=== PATIENT | male | born 1980 | race Caucasian/White ===

== ENCOUNTER 2018-10-18 04:35 | Inpatient (IN) | payer BC, OTHER ==
[~2018-10-18] VITALS: Ht 177.8 cm; Wt 97.8 kg
[2018-10-18] VITALS (9 sets, daily range): BP systolic 114–147; BP diastolic 78–101
--- OUTSIDE RECORDS SUMMARY | 2018-10-18 04:45 | XMS REPORT ---
Author Author Swapna Isaacs Organization [facility] Address [address] [place], [place] [id number] Care Team Providers Care Yard Caller Name Role Phone Swapna Isaacs PCP Swapna Isaacs PreferredProvider Allergies and Adverse Reactions Name Reaction Notes NO KNOWN DRUG ALLERGIES Plan of Treatment Planned Activity Comments Planned Date Planned Time Plan/Goal .Lipid Panel 06/21/2017 12:00 AM .Lipid Panel 06/27/2018 12:00 AM US [employer] (SINGLE ORGAN) 07/09/2018 12:00 AM Medications Active Name Start Date Estimated Completion Date SIG Comments mupirocin 2 % topical ointment 08/26/2013 apply a small amount to the affected area by topical route 3 times per day Humira subcutaneous lisinopril 10 mg oral tablet 06/27/2018 TAKE 1 TABLET BY MOUTH EVERY DAY Name Start Date Expiration Date SIG Comments [place]-Smoothe/FS Scalp Oil 0.01 % scalp oil 08/26/2010 10/25/2010 apply thin film to damp scalp by topical route massage well and cover. Leave on for 4 hours or overnight then wash off fluocinolone 0.025 % topical ointment 08/26/2010 10/25/2010 apply to the affected area(s) by topical route 2 times per day for 30 days prednisone 20 mg oral tablet 08/26/2010 09/07/2010 Take 2 tabs x 3 days, then 1 1/2 tabs x 3 days, then 1 tab x 3 days then 1/2 tab x 3 days amoxicillin 500 mg oral capsule 01/13/2013 01/23/2013 take 1 capsule (500 mg) by oral route 3 times per day for 10 days prednisone 20 mg oral tablet 03/19/2013 03/28/2013 take 3 tabs PO x 3 days, then 2 tabs PO x 3 days, and then 1 tab PO x 3 days meloxicam 15 mg oral tablet 04/01/2013 05/01/2013 take 1 tablet (15 mg) by oral route once daily for 30 days clobetasol 0.05 % topical ointment 02/05/2015 apply a thin layer to the affected area(s) by topical route 2 times per day phentermine 37.5 mg oral tablet 06/02/2016 take 1 tablet by oral route daily metformin 500 mg oral tablet extended release 24hr 06/19/2016 09/17/2016 take 1 tablet (500 mg) by oral route once daily with the evening meal for 30 days Zyrtec-D 5-120 mg oral tablet extended release 12 hr 07/24/2016 take 1 tablet by oral route every 12 hours promethazine-codeine 6.25-10 mg/5 mL oral syrup 07/24/2016 take 5 milliliters by oral route every 4-6 hours as needed, not to exceed 30 mL in 24 hours Tamiflu 75 mg oral capsule 07/26/2016 07/31/2016 take 1 capsule (75 mg) by oral route 2 times per day for 5 days naproxen 500 mg oral tablet 06/21/2017 take 1 tablet (500 mg) by oral route 2 times per day with food for 30 days phentermine 37.5 mg oral tablet 06/21/2017 take 1 tablet (37.5 mg) by oral route once daily before breakfast Discontinued Name Start Date Discontinued Date SIG Comments ibuprofen 800 mg oral tablet 11/28/2010 03/19/2013 take 1 tablet (800 mg) by oral route 3 times per day with food triamcinolone acetonide 0.5 % topical cream 01/13/2013 03/19/2013 apply a thin layer to the affected area(s) by topical route 2 times per day Temovate E 0.05 % topical cream 02/25/2013 03/19/2013 apply a thin layer to the affected area(s) by topical route 2 times per day cyclobenzaprine 10 mg oral tablet 04/01/2013 03/27/2014 take 1 tablet daiy HS mupirocin 2 % topical ointment 10/31/2013 03/27/2014 apply a small amount to the affected area by topical route 3 times per day triamcinolone acetonide 0.5 % topical cream 11/28/2013 03/27/2014 apply a thin layer to the affected area(s) by topical route 3 times per day terbinafine HCl 250 mg oral tablet 03/27/2014 02/05/2015 take 1 tablet (250 mg) by oral route once daily Problem List Description Status Onset Psoriasis Active 02/08/2015 Psoriasis Active 04/15/2015 Essential hypertension Active 04/28/2016 Vital Signs Date Time BP-Sys(mm[Hg] BP-Shani(mm[Hg]) HR(bpm) RR(rpm) Temp WT HT HC BMI BSA BMI Percentile O2 Sat(%) 06/27/2018 1:46:00 PM 134 mmHg 78 mmHg 88 bpm 18 rpm 98.4 F 234 lbs 69.5 in 34.06 kg/m 2.2814 m 97 % 06/21/2017 1:42:00 PM 132 mmHg 72 mmHg 97 bpm 18 rpm 97.7 F 234.125 lbs 69.5 in 34.08 kg/m2 2.28 m2 97 % 07/26/2016 5:13:00 PM 138 mmHg 76 mmHg 64 bpm 18 rpm 104.1 F 204.125 lbs 69.5 in 29.7115 kg/m 2.1308 m 98 % 07/24/2016 9:43:00 AM 130 mmHg 70 mmHg 94 bpm 18 rpm 99.1 F 211.125 lbs 69.5 in 30.73 kg/m2 2.17 m2 98 % 06/02/2016 8:05:00 AM 126 mmHg 66 mmHg 82 bpm 18 rpm 98.6 F 205.5 lbs 69.5 in 29.9117 kg/m 2.138 m 100 % 04/28/2016 8:00:00 AM 124 mmHg 68 mmHg 74 bpm 18 rpm 97.5 F 213.125 lbs 69.5 in 31.02 kg/m2 2.18 m2 99 % 03/24/2016 9:06:00 AM 132 mmHg 78 mmHg 83 bpm 16 rpm 98.8 F 225 lbs 69.5 in 32.75 kg/m 2.2371 m 97 % 05/21/2015 8:41:00 AM 122 mmHg 78 mmHg 71 bpm 20 rpm 97.8 F 205 lbs 69.5 in 29.84 kg/m2 2.14 m2 98 % 04/15/2015 8:39:00 AM 126 mmHg 80 mmHg 73 bpm 18 rpm 97.5 F 212.5 lbs 69.5 in 30.9305 kg/m 2.1741 m 97 % 03/12/2015 8:41:00 AM 126 mmHg 84 mmHg 63 bpm 16 rpm 96.8 F 218.437 lbs 69.5 in 31.79 kg/m2 2.20 m2 99 % 02/05/2015 10:37:00 AM 126 mmHg 64 mmHg 80 bpm 18 rpm 97.8 F 228.5 lbs 69.5 in 33.2594 kg/m 2.2544 m 97 % 03/27/2014 10:28:00 AM 132 mmHg 76 mmHg 73 bpm 18 rpm 97.5 F 264.125 lbs 69.5 in 38.44 kg/m2 2.42 m2 99 % 04/01/2013 3:54:00 PM 152 mmHg 82 mmHg 85 bpm 98.2 F 230.125 lbs 97 % 03/19/2013 2:49:00 PM 140 mmHg 100 mmHg 78 bpm 20 rpm 98.5 F 227.8 lbs 69.75 in 32.92 kg/m2 2.26 m2 97 % 01/13/2013 4:24:00 PM 130 mmHg 90 mmHg 81 bpm 18 rpm 97.9 F 225.6 lbs 69.75 in 32.6024 kg/m 2.2441 m 97 % 11/28/2010 2:46:00 PM 128 mmHg 76 mmHg 72 bpm 16 rpm 98.2 F 205.125 lbs 69.75 in 29.64 kg/m2 2.14 m2 08/26/2010 8:21:00 AM 132 mmHg 70 mmHg 72 bpm 16 rpm 98.2 F 204.5 lbs 70 in 29.3424 kg/m 2.1404 m Social History Name Description Comments No Tobacco Use Living with significant other Shipping History of Procedures Date Ordered Description Order Status 06/21/2017 12:00 AM COMPLETE CBC W/AUTO DIFF WBC Reviewed 06/21/2017 12:00 AM COMPREHEN METABOLIC PANEL Reviewed 06/27/2018 12:00 AM COMPLETE CBC W/AUTO DIFF WBC Returned 06/27/2018 12:00 AM COMPREHEN METABOLIC PANEL Returned 07/01/2018 12:00 AM ASSAY OF GGT Returned 02/05/2015 12:00 AM Decadron, Per 1 Mg [facility]# [id number] Reviewed 02/05/2015 12:00 AM Depo-Medrol 40mg Reviewed 02/05/2015 12:00 AM Dermatology Consult Reviewed Results Summary Not available. History Of Immunizations Not available. History of Past Illness Name Date of Onset Comments *No known medical problems Psoriasis 04/15/2015 Psoriasis Aug 26 2010 8:23AM Essential hypertension 04/28/2016 Sprain/Strain right knee Nov 28 2010 2:46PM Otitis Media, Left Jan 13 2013 4:28PM Psoriasis Jan 13 2013 4:28PM Psoriasis Feb 25 2013 9:58AM Sciatica Mar 19 2013 2:53PM Back Pain Apr 01 2013 3:57PM Adult general medical exam Mar 27 2014 10:30AM Psoriasis Feb 05 2015 10:39AM BMI 33.0-33.9,adult Feb 05 2015 10:39AM Body Mass Index [BMI]; body mass index between 30-39, adult; body mass index 31.0-31.9, adult Mar 12 2015 8:42AM Psoriasis Mar 12 2015 8:42AM Psoriasis Apr 15 2015 8:42AM BMI 30.0-30.9,adult Apr 15 2015 8:42AM Dietary Counseling May 21 2015 8:43AM Exercise Counseling May 21 2015 8:43AM Overweight May 21 2015 8:43AM Hypertension Mar 24 2016 9:12AM Body Mass Index [BMI]; body mass index between 30-39, adult; body mass index 32.0-32.9, adult Mar 24 2016 9:12AM BMI 31.0-31.9,adult Apr 28 2016 8:02AM Non morbid obesity due to excess calories Apr 28 2016 8:02AM Essential hypertension Apr 28 2016 8:02AM Overweight Jun 02 2016 8:07AM Essential Hypertension Jun 02 2016 8:07AM Acute upper respiratory infection Jul 24 2016 9:45AM Influenza-like symptoms Jul 26 2016 5:15PM Essential hypertension Jun 21 2017 1:45PM Screening for ischemic heart disease Jun 21 2017 1:45PM General medical exam Jun 21 2017 1:45PM Tendonitis Jun 21 2017 1:45PM Essential hypertension Jun 27 2018 1:48PM Screening for ischemic heart disease Jun 27 2018 1:48PM Psoriasis Jun 27 2018 1:48PM Elevated ALT measurement Jul 01 2018 4:41PM Elevated liver enzymes Jul 09 2018 11:49AM Payers Insurance Name Company Name Plan Name Plan Number Policy Number Policy Group Number Start Date [employer] [place] [id number] N/A [employer] [place] [id number] N/A [employer] [place] [id number] N/A BCBS [employer] [facility] [id number] N/A History of Encounters Visit Date Visit Type Provider 06/27/2018 Office visit Swapna Isaacs BODY MAN 06/21/2017 Office visit Swapna Isaacs BODY MAN 07/26/2016 Office visit Saleem Pena BODY MAN 07/24/2016 Office visit Swapna Isaacs BODY MAN 06/02/2016 Office visit Swapna Isaacs BODY MAN 04/28/2016 Office visit Swapna Isaacs BODY MAN 03/24/2016 Office visit Swapna Isaacs BODY MAN 05/21/2015 Office visit Valeria Maldonado BODY MAN 04/15/2015 Office visit Swapna Isaacs BODY MAN 03/12/2015 Office visit Swapna Isaacs BODY MAN 02/05/2015 Office visit Swapna Isaacs BODY MAN 03/27/2014 Office visit Swapna Isaacs BODY MAN 04/01/2013 Office visit Swapna Isaacs BODY MAN 03/19/2013 Office visit Valeria Maldonado BODY MAN 01/13/2013 Office visit Valeria Maldonado BODY MAN 11/28/2010 Office visit Reshma BELTRAN 08/26/2010 Office visit Reshma BELTRAN
--- OUTSIDE RECORDS SUMMARY | 2018-10-18 04:46 | XMS REPORT ---
Author Author Swapna Isaacs Organization [facility] Address [address] [place], [place] [id number] Care Team Providers Care Any Commodity Sales Deliverer Name Role Phone Swapna Isaacs PCP Swapna Isaacs PreferredProvider Allergies and Adverse Reactions Name Reaction Notes NO KNOWN DRUG ALLERGIES Plan of Treatment Planned Activity Comments Planned Date Planned Time Plan/Goal .Lipid Panel 06/21/2017 12:00 AM .Lipid Panel 06/27/2018 12:00 AM US [employer] (SINGLE ORGAN) 07/09/2018 12:00 AM Medications Active Name Start Date Estimated Completion Date SIG Comments mupirocin 2 % topical ointment 08/26/2013 apply a small amount to the affected area by topical route 3 times per day Humira subcutaneous lisinopril 10 mg oral tablet 06/27/2018 TAKE 1 TABLET BY MOUTH EVERY DAY Name Start Date Expiration Date SIG Comments [place]-Smoothe/FS Scalp Oil 0.01 % scalp oil 08/26/2010 [...] 02/05/2015 12:00 AM Decadron, Per 1 Mg [facility]# [id number] Reviewed 02/05/2015 12:00 AM Depo-Medrol 40mg Reviewed [...] Group Number Start Date [employer] [place] [id number] N/A [employer] [place] [id number] N/A [employer] [place] [id number] N/A BCBS Bcbs [facility] [id number] N/A History of Encounters Visit Date Visit Type Provider 06/27/2018 Office visit Swapna Isaacs PANTS PRESSER AUTOMATIC 06/21/2017 Office visit Swapna Isaacs PANTS PRESSER AUTOMATIC 07/26/2016 Office visit Saleem Pena PANTS PRESSER AUTOMATIC 07/24/2016 Office visit Swapna Isaacs PANTS PRESSER AUTOMATIC 06/02/2016 Office visit Swapna Isaacs PANTS PRESSER AUTOMATIC 04/28/2016 Office visit Swapna Isaacs PANTS PRESSER AUTOMATIC 03/24/2016 Office visit Swapna Isaacs PANTS PRESSER AUTOMATIC 05/21/2015 Office visit Valeria Maldonado PANTS PRESSER AUTOMATIC 04/15/2015 Office visit Swapna Isaacs PANTS PRESSER AUTOMATIC 03/12/2015 Office visit Swapna Isaacs PANTS PRESSER AUTOMATIC 02/05/2015 Office visit Swapna Isaacs PANTS PRESSER AUTOMATIC 03/27/2014 Office visit Swapna Isaacs PANTS PRESSER AUTOMATIC 04/01/2013 Office visit Swapna Isaacs PANTS PRESSER AUTOMATIC 03/19/2013 Office visit Valeria Maldonado PANTS PRESSER AUTOMATIC 01/13/2013 Office visit Valeria Maldonado PANTS PRESSER AUTOMATIC 11/28/2010 Office visit Reshma BELTRAN 08/26/2010 Office visit Reshma BELTRAN
--- OUTSIDE RECORDS SUMMARY | 2018-10-18 04:46 | XMS REPORT ---
Author Author Swapna Isaacs [facility] Address [address] [facility] [address] [place], [place] [phone] Care Team Providers Care Metal Moulder Name Role Phone Swapna Isaacs PCP Swapna Isaacs PreferredProvider Allergies and Adverse Reactions Name Reaction Notes NO KNOWN DRUG ALLERGIES Plan of Treatment Planned Activity Comments Planned Date Planned Time Plan/Goal .Lipid Panel 06/21/2017 12:00 AM .Lipid Panel 06/27/2018 12:00 AM GGTP 07/01/2018 12:00 AM Medications Active Name Start Date Estimated Completion Date SIG Comments mupirocin 2 % topical ointment 08/26/2013 apply a small amount to the affected area by topical route 3 times per day Humira subcutaneous lisinopril 10 mg oral tablet 06/27/2018 TAKE 1 TABLET BY MOUTH EVERY DAY Name Start Date Expiration Date SIG Comments [place]-Smoothe/FS Scalp Oil 0.01 % scalp oil 08/26/2010 [...] 06/27/2018 12:00 AM COMPREHEN METABOLIC PANEL Returned 02/05/2015 12:00 AM Decadron, Per 1 Mg [facility]# [id number] Reviewed 02/05/2015 12:00 AM Depo-Medrol 40mg Reviewed [...] Elevated ALT measurement Jul 01 2018 4:41PM Payers Insurance Name Company Name Plan Name Plan Number Policy Number Policy Group Number Start Date BCBS Bcbs [facility] [id number] N/A BCBS [employer] [facility] [id number] N/A BCBS [employer] [facility] [id number] N/A BCBS [employer] [facility] [id number] N/A History of Encounters Visit Date Visit Type Provider 06/27/2018 Office visit Swapna Isaacs MAINFRAME PROGRAMMER ANALYST 06/21/2017 Office visit Swapna Ferny MAINFRAME PROGRAMMER ANALYST 07/26/2016 Office visit Saleem Pena MAINFRAME PROGRAMMER ANALYST 07/24/2016 Office visit Swapna Ferny MAINFRAME PROGRAMMER ANALYST 06/02/2016 Office visit Swapna Ferny MAINFRAME PROGRAMMER ANALYST 04/28/2016 Office visit Swapna Ferny MAINFRAME PROGRAMMER ANALYST 03/24/2016 Office visit Swapna Ferny MAINFRAME PROGRAMMER ANALYST 05/21/2015 Office visit Valeria Maldonado MAINFRAME PROGRAMMER ANALYST 04/15/2015 Office visit Swapna Isaacs MAINFRAME PROGRAMMER ANALYST 03/12/2015 Office visit Swapna Isaacs MAINFRAME PROGRAMMER ANALYST 02/05/2015 Office visit Swapna Isaacs MAINFRAME PROGRAMMER ANALYST 03/27/2014 Office visit Swapna Isaacs MAINFRAME PROGRAMMER ANALYST 04/01/2013 Office visit Swapna Isaacs MAINFRAME PROGRAMMER ANALYST 03/19/2013 Office visit Valeria Maldonado MAINFRAME PROGRAMMER ANALYST 01/13/2013 Office visit Valeria Maldonado MAINFRAME PROGRAMMER ANALYST 11/28/2010 Office visit Reshma BELTRAN 08/26/2010 Office visit Reshma BELTRAN
--- OUTSIDE RECORDS SUMMARY | 2018-10-18 04:46 | XMS REPORT ---
Author Author Swapna Isaacs Organization [facility] Address [address] [place], [place] [phone] Care Team Providers Care Appointment Setter Name Role Phone Swapna Isaacs PCP Swapna Isaacs PreferredProvider Allergies and Adverse Reactions Name Reaction Notes NO KNOWN DRUG ALLERGIES Plan of Treatment Planned Activity Comments Planned Date Planned Time Plan/Goal .Lipid Panel 06/21/2017 12:00 AM .Lipid Panel 06/27/2018 12:00 AM US [employer] (SINGLE ORGAN) 07/09/2018 12:00 AM Medications Active Name Start Date Estimated Completion Date SIG Comments mupirocin 2 % topical ointment 08/26/2013 apply a small amount to the affected area by topical route 3 times per day Humira subcutaneous lisinopril 10 mg oral tablet 06/27/2018 TAKE 1 TABLET BY MOUTH EVERY DAY Name Start Date Expiration Date SIG Comments [place]-Smoothe/FS Scalp Oil 0.01 % scalp oil 08/26/2010 [...] 02/05/2015 12:00 AM Decadron, Per 1 Mg [facility]# [id number] Reviewed 02/05/2015 12:00 AM Depo-Medrol 40mg Reviewed [...] Group Number Start Date [employer]BS [employer] [place] [id number] N/A [employer] [place] [id number] N/A [employer] [place] [id number] N/A BCBS [employer]cbs [facility] [id number] N/A History of Encounters Visit Date Visit Type Provider 06/27/2018 Office visit Swapna Isaacs RAILROAD WATCHMAN 06/21/2017 Office visit Swapna Isaacs RAILROAD WATCHMAN 07/26/2016 Office visit Saleem Pena RAILROAD WATCHMAN 07/24/2016 Office visit Swapna Isaacs RAILROAD WATCHMAN 06/02/2016 Office visit Swapna Isaacs RAILROAD WATCHMAN 04/28/2016 Office visit Swapna Isaacs RAILROAD WATCHMAN 03/24/2016 Office visit Swapna Isaacs RAILROAD WATCHMAN 05/21/2015 Office visit Valeria Maldonado RAILROAD WATCHMAN 04/15/2015 Office visit Swapna Isaacs RAILROAD WATCHMAN 03/12/2015 Office visit Swapna Isaacs RAILROAD WATCHMAN 02/05/2015 Office visit Swapna Isaacs RAILROAD WATCHMAN 03/27/2014 Office visit Swapna Isaacs RAILROAD WATCHMAN 04/01/2013 Office visit Swapna Isaacs RAILROAD WATCHMAN 03/19/2013 Office visit Valeria Maldonado RAILROAD WATCHMAN 01/13/2013 Office visit Valeria Maldonado RAILROAD WATCHMAN 11/28/2010 Office visit Reshma BELTRAN 08/26/2010 Office visit Reshma BELTRAN
--- OUTSIDE RECORDS SUMMARY | 2018-10-18 04:47 | XMS REPORT ---
Author Author Swapna Isaacs [facility] Address [address] [facility] [address] [place], [place] [phone] Care Team Providers Care Ivory Polisher Name Role Phone Swapna Isaacs PCP Swapna [...] Name Start Date Expiration Date SIG Comments [place]-Smoothe/FS Scalp Oil 0.01 % scalp oil 08/26/2010 [...] Per 1 Mg [facility]# [id number] Reviewed 02/05/2015 12:00 AM Depo-Medrol 40mg Reviewed [...] Policy Group Number Start Date BCBS Bcbs [facility] [id number] N/A BCBS [employer]cbs [facility] [id number] N/A BCBS [employer]cbs [facility] [id number] N/A BCBS [employer]cbs [facility] [id number] N/A History of Encounters Visit Date Visit Type Provider 06/27/2018 Office visit Swapna Isaacs REFUELER 06/21/2017 Office visit Swapna Ferny REFUELER 07/26/2016 Office visit Saleem Pena REFUELER 07/24/2016 Office visit Swapna Ferny REFUELER 06/02/2016 Office visit Swapna Ferny REFUELER 04/28/2016 Office visit Swapna Ferny REFUELER 03/24/2016 Office visit Swapna Ferny REFUELER 05/21/2015 Office visit Valeria Maldonado REFUELER 04/15/2015 Office visit Swapna Isaacs REFUELER 03/12/2015 Office visit Swapna Isaacs REFUELER 02/05/2015 Office visit Swapna Isaacs REFUELER 03/27/2014 Office visit Swapna Isaacs REFUELER 04/01/2013 Office visit Swapna Isaacs REFUELER 03/19/2013 Office visit Valeria Maldonado REFUELER 01/13/2013 Office visit Valeria Maldonado REFUELER 11/28/2010 Office visit Reshma BELTRAN 08/26/2010 Office visit Reshma BELTRAN
--- OUTSIDE RECORDS SUMMARY | 2018-10-18 04:47 | XMS REPORT ---
Author Author Swapna Isaacs [facility] Address [address] [facility] [address] [place], [place] [id number] Care Team Providers Care Patcher Wood Welder Name Role Phone Swapna Isaacs PCP Unavailable Allergies and Adverse Reactions Name Reaction Notes NO KNOWN DRUG ALLERGIES Plan of Treatment Not available. Medications Active Name Start Date Estimated Completion Date SIG Comments lisinopril 10 mg oral tablet 08/26/2013 take 1 tablet (10 mg) by oral route once daily mupirocin 2 % topical ointment 08/26/2013 apply a small amount to the affected area by topical route 3 times per day lisinopril 10 mg oral tablet 11/13/2013 take 1 tablet (10 mg) by oral route once daily clobetasol 0.05 % topical ointment 02/05/2015 apply a thin layer to the affected area(s) by topical route 2 times per day lisinopril 10 mg oral tablet 02/05/2015 TAKE 1 TABLET ONCE DAILY phentermine 37.5 mg oral tablet 03/24/2016 take 1 tablet by oral route daily Name Start Date Expiration Date SIG Comments [place]-Smoothe/FS Scalp Oil 0.01 % scalp oil 08/26/2010 [...] oral route once daily for 30 days Discontinued Name Start Date Discontinued Date SIG [...] Onset Psoriasis Active 02/08/2015 Psoriasis Active 04/15/2015 Vital Signs Date Time BP-Sys(mm[Hg] BP-Shani(mm[Hg]) HR(bpm) RR(rpm) Temp WT HT HC BMI BSA BMI Percentile O2 Sat(%) 03/24/2016 9:06:00 AM 132 mmHg 78 mmHg 83 bpm 16 rpm 98.8 F 225 lbs 69.5 in 32.75 kg/m2 2.24 m2 97 % 05/21/2015 8:41:00 AM 122 mmHg 78 mmHg 71 bpm 20 rpm 97.8 F 205 lbs 69.5 in 29.8389 kg/m 2.1353 m 98 % 04/15/2015 8:39:00 AM 126 mmHg 80 mmHg 73 bpm 18 rpm 97.5 F 212.5 lbs 69.5 in 30.93 kg/m2 2.17 m2 97 % 03/12/2015 8:41:00 AM 126 mmHg 84 mmHg 63 bpm 16 rpm 96.8 F 218.437 lbs 69.5 in 31.7948 kg/m 2.2042 m 99 % 02/05/2015 10:37:00 AM 126 mmHg 64 mmHg 80 bpm 18 rpm 97.8 F 228.5 lbs 69.5 in 33.26 kg/m2 2.25 m2 97 % 03/27/2014 10:28:00 AM 132 mmHg 76 mmHg 73 bpm 18 rpm 97.5 F 264.125 lbs 69.5 in 38.4449 kg/m 2.4238 m 99 % 04/01/2013 3:54:00 PM 152 mmHg 82 mmHg 85 bpm 98.2 F 230.125 lbs 97 % 03/19/2013 2:49:00 PM 140 mmHg 100 mmHg 78 bpm 20 rpm 98.5 F 227.8 lbs 69.75 in 32.9203 kg/m 2.255 m 97 % 01/13/2013 4:24:00 PM 130 mmHg 90 mmHg 81 bpm 18 rpm 97.9 F 225.6 lbs 69.75 in 32.60 kg/m2 2.24 m2 97 % 11/28/2010 2:46:00 PM 128 mmHg 76 mmHg 72 bpm 16 rpm 98.2 F 205.125 lbs 69.75 in 29.6434 kg/m 2.1398 m 08/26/2010 8:21:00 AM 132 mmHg 70 mmHg 72 bpm 16 rpm 98.2 F 204.5 lbs 70 in 29.34 kg/m2 2.14 m2 Social History Name Description Comments No Tobacco Use Living with significant other Shipping History of Procedures Date Ordered Description Order Status 02/05/2015 12:00 AM Decadron, Per 1 Mg [facility]# [id number] Reviewed 02/05/2015 12:00 AM Depo-Medrol 40mg Reviewed Results Summary Data and Description Results 04/10/2014 8:00 AM GLUCOSE 106.0 mg/dLSODIUM 139.0 mmol/LPOTASSIUM 4.40 mmol/ LCHLORIDE 104.0 mmol/LCO2 24.0 mmol/LBUN 11.0 mg/dLCREATININE 0.80 mg/dLSGOT/ AST 36.0 IU/LSGPT/ALT 101.0 IU/LALK PHOS 83.0 IU/LTOTAL PROTEIN 6.80 g/ dLALBUMIN 4.70 g/dLTOTAL BILI 1.0 mg/dLCALCIUM 9.80 mg/dLeGFR 60 History Of Immunizations Not available. History of Past Illness Name Date of Onset Comments *No known medical problems Psoriasis 04/15/2015 Psoriasis Aug 26 2010 8:23AM Sprain/Strain right knee Nov 28 2010 2:46PM [...] index 32.0-32.9, adult Mar 24 2016 9:12AM Payers Insurance Name Company Name Plan Name Plan Number Policy Number Policy Group Number Start Date BCBS Bcbs [facility] [id number] Tuesday, 2013 BCBS [employer] [facility] [id number] N/A BCBS [employer] [facility] [id number] N/A BCBS [employer]cbs [facility] [id number] N/A History of Encounters Visit Date Visit Type Provider 03/24/2016 Office visit Swapna Isaacs APRN 05/21/2015 Office visit Valeria Maldonado APRN 04/15/2015 Office visit Swapna Isaacs APRN 03/12/2015 Office visit Swapna Isaacs APRN 02/05/2015 Office visit Swapna Isaacs APRN 03/27/2014 Office visit Swapna Isaacs APRN 04/01/2013 Office visit Swapna Isaacs APRN 03/19/2013 Office visit Valeria Maldonado LOOP DRIER OPERATOR 01/13/2013 Office visit Valeria Maldonado LOOP DRIER OPERATOR 11/28/2010 Office visit Reshma BELTRAN 08/26/2010 Office visit Reshma BELTRAN
--- OUTSIDE RECORDS SUMMARY | 2018-10-18 04:47 | XMS REPORT ---
Author Author Swapna Isaacs [facility] Address [address] [place], [place] [id number] Care Team Providers Care Professor Of Public Administration Name Role Phone Swapna Isaacs PCP Swapna Isaacs PreferredProvider Allergies and Adverse Reactions Name Reaction Notes NO KNOWN DRUG ALLERGIES Plan of Treatment Planned Activity Comments Planned Date Planned Time Plan/Goal .Lipid Panel 06/21/2017 12:00 AM CBC With Auto Differential 06/27/2018 12:00 AM CMP (comprehensive metabolic panel) 06/27/2018 12:00 AM .Lipid Panel 06/27/2018 12:00 AM Medications Active Name Start Date Estimated Completion Date SIG Comments mupirocin 2 % topical ointment 08/26/2013 apply a small amount to the affected area by topical route 3 times per day Humira subcutaneous lisinopril 10 mg oral tablet 06/27/2018 TAKE 1 TABLET BY MOUTH EVERY DAY Name Start Date Expiration Date SIG Comments [place]-Smoothe/FS Scalp Oil 0.01 % scalp oil 08/26/2010 [...] 06/21/2017 12:00 AM COMPREHEN METABOLIC PANEL Reviewed 02/05/2015 12:00 AM Decadron, Per 1 Mg [facility]# [id number] Reviewed 02/05/2015 12:00 AM Depo-Medrol 40mg Reviewed [...] 2018 1:48PM Psoriasis Jun 27 2018 1:48PM Payers Insurance Name Company Name Plan Name Plan Number Policy Number Policy Group Number Start Date [employer] [place] [id number] N/A [employer] [place] [id number] N/A BCBS [employer] [facility] [id number] N/A BCBS [employer] [facility] [id number] N/A History of Encounters Visit Date Visit Type Provider 06/27/2018 Office visit Swapna Isaacs TRAFFIC WORKFORCE REPRESENTATIVE 06/21/2017 Office visit Swapna Isaacs TRAFFIC WORKFORCE REPRESENTATIVE 07/26/2016 Office visit Saleem Pena TRAFFIC WORKFORCE REPRESENTATIVE 07/24/2016 Office visit Swapna Ferny TRAFFIC WORKFORCE REPRESENTATIVE 06/02/2016 Office visit Wsapna Ferny TRAFFIC WORKFORCE REPRESENTATIVE 04/28/2016 Office visit Swapna Isaacs TRAFFIC WORKFORCE REPRESENTATIVE 03/24/2016 Office visit Swapna Ferny TRAFFIC WORKFORCE REPRESENTATIVE 05/21/2015 Office visit Valeria Maldonado TRAFFIC WORKFORCE REPRESENTATIVE 04/15/2015 Office visit Swapna Ferny TRAFFIC WORKFORCE REPRESENTATIVE 03/12/2015 Office visit Swapna Isaacs TRAFFIC WORKFORCE REPRESENTATIVE 02/05/2015 Office visit Swapna Isaacs TRAFFIC WORKFORCE REPRESENTATIVE 03/27/2014 Office visit Swapna Isaacs TRAFFIC WORKFORCE REPRESENTATIVE 04/01/2013 Office visit Swapna Isaacs TRAFFIC WORKFORCE REPRESENTATIVE 03/19/2013 Office visit Valeria Maldonado TRAFFIC WORKFORCE REPRESENTATIVE 01/13/2013 Office visit Valeria Maldonado TRAFFIC WORKFORCE REPRESENTATIVE 11/28/2010 Office visit Reshma BELTRAN 08/26/2010 Office visit Reshma BELTRAN
--- OUTSIDE RECORDS SUMMARY | 2018-10-18 04:48 | XMS REPORT ---
Author Swapna Chávez [facility] Address [address] [place], [place] [address] Care Team Providers Care Senior Materials Planner Name Role Phone Swapna Isaacs PCP Unavailable [...] per day phentermine 37.5 mg oral tablet 02/05/2015 take 1 tablet by oral route daily lisinopril 10 mg oral tablet 02/05/2015 TAKE 1 TABLET ONCE DAILY Name Start Date Expiration Date SIG Comments [place]-Smoothe/FS Scalp Oil 0.01 % topical oil 08/26/2010 10/25/2010 apply thin film to [...] List Description Status Onset Psoriasis Active 02/08/2015 Vital Signs Date Time BP-Sys(mm[Hg] BP-Shani(mm[Hg]) HR(bpm) RR(rpm) Temp WT HT HC BMI BSA BMI Percentile O2 Sat(%) 02/05/2015 10:37:00 AM 126 mmHg 64 mmHg [...] 02/05/2015 12:00 AM Decadron, Per 1 Mg [facility]# [id number] Reviewed 02/05/2015 12:00 AM Depo-Medrol 40mg Reviewed [...] Onset Comments *No known medical problems Psoriasis 02/08/2015 Psoriasis Aug 26 2010 8:23AM Sprain/Strain right knee Nov 28 2010 2:46PM Otitis Media, Left Jan 13 2013 4:28PM Psoriasis Jan 13 2013 4:28PM Psoriasis Feb 25 2013 9:58AM Sciatica Mar 19 2013 2:53PM Back Pain Apr 01 2013 3:57PM Adult general medical exam Mar 27 2014 10:30AM Psoriasis Feb 05 2015 10:39AM BMI 33.0-33.9,adult Feb 05 2015 10:39AM Payers Insurance Name Company Name Plan Name Plan Number Policy Number Policy Group Number [facility] Date [id number], 2013 [employer] [place] [id number] N/A [employer] [place] [id number] N/A [employer] [place] [id number] N/A History of Encounters Visit Date Visit Type Provider 02/05/2015 Office visit Swapna Isaacs SUPERVISOR TANK STORAGE 03/27/2014 Office visit Swapna Isaacs SUPERVISOR TANK STORAGE 04/01/2013 Office visit Swapna Isaacs SUPERVISOR TANK STORAGE 03/19/2013 Office visit Valeria Maldonado SUPERVISOR TANK STORAGE 01/13/2013 Office visit Valeria Maldonado SUPERVISOR TANK STORAGE 11/28/2010 Office visit Reshma BELTRAN 08/26/2010 Office visit Reshma BELTRAN
--- OUTSIDE RECORDS SUMMARY | 2018-10-18 04:48 | XMS REPORT ---
Author Swapna Chávez [facility] Address [address] [place], [place] [phone] Care Team Providers Care Cubing Machine Tender Name Role Phone Swapna Isaacs PCP Unavailable [...] ONCE DAILY phentermine 37.5 mg oral tablet 04/15/2015 take 1 tablet by oral route daily Name Start Date Expiration Date SIG Comments [place]-Smoothe/FS Scalp Oil 0.01 % topical oil 08/26/2010 [...] HC BMI BSA BMI Percentile O2 Sat(%) 04/15/2015 8:39:00 AM 126 mmHg 80 mmHg [...] 02/05/2015 12:00 AM Decadron, Per 1 Mg [facility]# [id number] Reviewed 02/05/2015 12:00 AM Depo-Medrol 40mg Reviewed [...] 8:42AM BMI 30.0-30.9,adult Apr 15 2015 8:42AM Payers Insurance Name Company Name Plan Name Plan Number Policy Number Policy Group Number Start Date [employer] [place] [id number] Tuesday, 2013 [employer] [place] [id number] N/A [employer] [place] [id number] N/A [employer] [place] [id number] N/A History of Encounters Visit Date Visit Type Provider 04/15/2015 Office visit Swapna Isaacs APRN 03/12/2015 Office visit Swapna Isaacs APRN 02/05/2015 Office visit Swapna Isaacs APRN 03/27/2014 Office visit Swapna Isaacs APRN 04/01/2013 Office visit Swapna Isaacs APRN 03/19/2013 Office visit Valeria Maldonado APRN 01/13/2013 Office visit Valeria Maldonado APRN 11/28/2010 Office visit Reshma BELTRAN 08/26/2010 Office visit Reshma BELTRAN
--- OUTSIDE RECORDS SUMMARY | 2018-10-18 04:48 | XMS REPORT ---
Author Valeria Rea [facility] Address [address] [place], [place] [id number] Care Team Providers Care Bead Maker Name Role Phone Valeria Maldonado PCP Unavailable Allergies and Adverse Reactions Name [...] ONCE DAILY phentermine 37.5 mg oral tablet 05/21/2015 take 1 tablet by oral route daily Name Start Date Expiration Date SIG Comments [place]-Smoothe/FS Scalp Oil 0.01 % topical oil 08/26/2010 [...] HC BMI BSA BMI Percentile O2 Sat(%) 05/21/2015 8:41:00 AM 122 mmHg 78 mmHg [...] 1 Mg [facility]# [address]-23 Reviewed 02/05/2015 12:00 AM Depo-Medrol 40mg Reviewed [...] 2015 8:43AM Overweight May 21 2015 8:43AM Payers Insurance Name Company Name Plan Name Plan Number Policy Number Policy Group Number Start Date [employer] [place] [id number] Tuesday, 2013 [employer] [place] [id number] N/A [employer] [place] [id number] N/A [employer] [place] [id number] N/A History of Encounters Visit Date Visit Type Provider 05/21/2015 Office visit Valeria Maldonado SHREDDING MACHINE TENDER 04/15/2015 Office visit Swapna Isaacs SHREDDING MACHINE TENDER 03/12/2015 Office visit Swapna Isaacs SHREDDING MACHINE TENDER 02/05/2015 Office visit Swapna Isaacs SHREDDING MACHINE TENDER 03/27/2014 Office visit Swapna Isaacs SHREDDING MACHINE TENDER 04/01/2013 Office visit Swapna Isaacs SHREDDING MACHINE TENDER 03/19/2013 Office visit Valeria Maldonado SHREDDING MACHINE TENDER 01/13/2013 Office visit Valeria Maldonado SHREDDING MACHINE TENDER 11/28/2010 Office visit Reshma BELTRAN 08/26/2010 Office visit Reshma BELTRAN
--- OUTSIDE RECORDS SUMMARY | 2018-10-18 04:49 | XMS REPORT ---
Author Swapna Chávez [facility] Address [address] [place], [place] [address] Care Team Providers Care Director Of Distance Learning Name Role Phone Swapna Isaacs PCP Unavailable [...] Name Start Date Expiration Date SIG Comments [place]-Smoothe/FS Scalp Oil 0.01 % topical oil 08/26/2010 [...] 02/05/2015 12:00 AM Decadron, Per 1 Mg [facility]# [id number] Reviewed 02/05/2015 12:00 AM Depo-Medrol 40mg Reviewed [...] Policy Number Policy Group Number [facility] Date [id number], 2013 [employer] [place] [id number] N/A [employer] [place] [id number] N/A [employer] [place] [id number] N/A History of Encounters Visit Date Visit Type Provider 02/05/2015 Office visit Swapna Isaacs CASE CHECKER 03/27/2014 Office visit Swapna Isaacs CASE CHECKER 04/01/2013 Office visit Swapna Isaacs CASE CHECKER 03/19/2013 Office visit Valeria Maldonado CASE CHECKER 01/13/2013 Office visit Valeria Maldonado CASE CHECKER 11/28/2010 Office visit Reshma BELTRAN 08/26/2010 Office visit Reshma BELTRAN
--- OUTSIDE RECORDS SUMMARY | 2018-10-18 04:49 | XMS REPORT ---
Author Author Swapna Isaacs [facility] Address [address] [place], [place] [address] Care Team Providers Care Synthetic Department Supervisor Name Role Phone Swapna Isaacs PCP Unavailable Swapna Isaacs PreferredProvider Unavailable Allergies and Adverse Reactions Name Reaction [...] per day lisinopril 10 mg oral tablet 04/18/2016 TAKE 1 TABLET ONCE DAILY phentermine 37.5 mg oral tablet 06/02/2016 take [...] to exceed 30 mL in 24 hours Name Start Date Expiration Date SIG Comments [place]-Smoothe/FS Scalp Oil 0.01 % scalp oil 08/26/2010 [...] HC BMI BSA BMI Percentile O2 Sat(%) 07/24/2016 9:43:00 AM 130 mmHg 70 mmHg [...] 12:00 AM Decadron, Per 1 Mg [facility]# [id number] Reviewed 02/05/2015 12:00 AM Depo-Medrol 40mg Reviewed Results Summary Data and Description Results 04/10/2014 8:00 AM GLUCOSE 106.0 mg/dLSODIUM 139.0 mmol/LPOTASSIUM 4.40 mmol/ LCHLORIDE 104.0 mmol/LCO2 24.0 mmol/LBUN 11.0 mg/dLCREATININE 0.80 mg/dLSGOT/ AST 36.0 IU/LSGPT/ALT 101.0 IU/LALK PHOS 83.0 IU/LTOTAL PROTEIN 6.80 g/ dLALBUMIN 4.70 g/dLTOTAL BILI 1.0 mg/dLCALCIUM 9.80 mg/dLAGE 33 GFR NonAA 112 GFR AA 136 eGFR 60 eGFR AA* 60 History Of Immunizations Not available. History [...] upper respiratory infection Jul 24 2016 9:45AM Payers Insurance Name Company Name Plan Name Plan Number Policy Number Policy Group Number Start Date [employer] [place] [id number] Tuesday, 2013 [employer] [place] [id number] N/A [employer] [place] [id number] N/A [employer] [place] [id number] N/A History of Encounters Visit Date Visit Type Provider 07/24/2016 Office visit Swapna Isaacs MITERING MACHINE OPERATOR 06/02/2016 Office visit Swapna Isaacs MITERING MACHINE OPERATOR 04/28/2016 Office visit Swapna Isaacs MITERING MACHINE OPERATOR 03/24/2016 Office visit Swapna Isaacs MITERING MACHINE OPERATOR 05/21/2015 Office visit Valeria Maldonado MITERING MACHINE OPERATOR 04/15/2015 Office visit Swapna Isaacs APRN 03/12/2015 Office visit Swapna Isaacs MITERING MACHINE OPERATOR 02/05/2015 Office visit Swapna Isaacs MITERING MACHINE OPERATOR 03/27/2014 Office visit Swapna Isaacs MITERING MACHINE OPERATOR 04/01/2013 Office visit Swapna Isaacs MITERING MACHINE OPERATOR 03/19/2013 Office visit Valeria Maldonado MITERING MACHINE OPERATOR 01/13/2013 Office visit Valeria Maldonado MITERING MACHINE OPERATOR 11/28/2010 Office visit Reshma BELTRAN 08/26/2010 Office visit Reshma BELTRAN
--- OUTSIDE RECORDS SUMMARY | 2018-10-18 04:49 | XMS REPORT ---
Author Author Saleem Pena [facility] Address [address] [place], [place] [address] Care Team Providers Care International Project Engineer Name Role Phone Saleem Pena PCP Swapna Isaacs PreferredProvider Unavailable Allergies and Adverse [...] Name Start Date Expiration Date SIG Comments [place]-Smoothe/FS Scalp Oil 0.01 % scalp oil 08/26/2010 [...] oral route once daily for 30 days Tamiflu 75 mg oral capsule 07/26/2016 07/31/2016 take 1 capsule (75 mg) by oral route 2 times per day for 5 days Discontinued Name Start Date Discontinued Date [...] HC BMI BSA BMI Percentile O2 Sat(%) 07/26/2016 5:13:00 PM 138 mmHg 76 mmHg 64 bpm 18 rpm 104.1 F 204.125 lbs 69.5 in 29.71 kg/m2 2.13 m2 98 % 07/24/2016 9:43:00 AM 130 mmHg 70 mmHg 94 bpm 18 rpm 99.1 F 211.125 lbs 69.5 in 30.7304 kg/m 2.167 m 98 % 06/02/2016 8:05:00 AM 126 mmHg 66 mmHg 82 bpm 18 rpm 98.6 F 205.5 lbs 69.5 in 29.91 kg/m2 2.14 m2 100 % 04/28/2016 8:00:00 AM 124 mmHg 68 mmHg 74 bpm 18 rpm 97.5 F 213.125 lbs 69.5 in 31.0215 kg/m 2.1773 m 99 % 03/24/2016 9:06:00 AM 132 mmHg [...] AM Decadron, Per 1 Mg [facility]# [id number] Reviewed 02/05/2015 12:00 AM Depo-Medrol 40mg Reviewed [...] 9:45AM Influenza-like symptoms Jul 26 2016 5:15PM Payers Insurance Name Company Name Plan Name Plan Number Policy Number Policy Group Number Start Date [employer] [place] [id number] Tuesday, 2013 [employer] [place] [id number] N/A [employer] [place] [id number] N/A [employer] [place] [id number] N/A History of Encounters Visit Date Visit Type Provider 07/26/2016 Office visit Saleem Pena DIRECTOR OPERATIONS 07/24/2016 Office visit Swapna Isaacs DIRECTOR OPERATIONS 06/02/2016 Office visit Swapna Isaacs DIRECTOR OPERATIONS 04/28/2016 Office visit Swapna Isaacs DIRECTOR OPERATIONS 03/24/2016 Office visit Swapna Isaacs DIRECTOR OPERATIONS 05/21/2015 Office visit Valeria Maldnoado DIRECTOR OPERATIONS 04/15/2015 Office visit Swapna Isaacs DIRECTOR OPERATIONS 03/12/2015 Office visit Swapna Isaacs DIRECTOR OPERATIONS 02/05/2015 Office visit Swapna Isaacs DIRECTOR OPERATIONS 03/27/2014 Office visit Swapna Isaacs DIRECTOR OPERATIONS 04/01/2013 Office visit Swapna Isaacs DIRECTOR OPERATIONS 03/19/2013 Office visit Valeria Maldonado DIRECTOR OPERATIONS 01/13/2013 Office visit Valeria Maldonado DIRECTOR OPERATIONS 11/28/2010 Office visit Reshma BELTRAN 08/26/2010 Office visit Reshma BELTRAN
--- OUTSIDE RECORDS SUMMARY | 2018-10-18 04:50 | XMS REPORT ---
Author Author Swapna Isaacs [facility] Address [address] [place], [place] [address] Care Team Providers Care Svp Chief Marketing Officer Name Role Phone Swapna Isaacs PCP Unavailable [...] Name Start Date Expiration Date SIG Comments [place]-Smoothe/FS Scalp Oil 0.01 % scalp oil 08/26/2010 [...] Psoriasis Active 02/08/2015 Psoriasis Active 04/15/2015 Essential Hypertension Active 04/28/2016 Vital Signs Date Time BP-Sys(mm[Hg] BP-Shani(mm[Hg]) HR(bpm) RR(rpm) Temp WT HT HC BMI BSA BMI Percentile O2 Sat(%) 06/02/2016 8:05:00 AM 126 mmHg 66 mmHg [...] 12:00 AM Decadron, Per [address] [facility]# [id number] Reviewed 02/05/2015 12:00 AM Depo-Medrol 40mg Reviewed [...] 04/15/2015 Psoriasis Aug 26 2010 8:23AM Essential Hypertension 04/28/2016 Sprain/Strain right knee Nov 28 2010 [...] 8:07AM Essential Hypertension Jun 02 2016 8:07AM Payers Insurance Name Company Name Plan Name Plan Number Policy Number Policy Group Number [facility] [id number] Tuesday, 2013 [employer] [place] [id number] N/A [employer] [place] [id number] N/A [employer] [place] [id number] N/A History of Encounters Visit Date Visit Type Provider 06/02/2016 Office visit Swapna Isaacs APRN 04/28/2016 Office visit Swapna Isaacs APRN 03/24/2016 Office visit Swapna Isaacs SEASONAL RETAIL MERCHANDISER 05/21/2015 Office visit Valeria Maldonado SEASONAL RETAIL MERCHANDISER 04/15/2015 Office visit Swapna Isaacs SEASONAL RETAIL MERCHANDISER 03/12/2015 Office visit Swapna Isaacs SEASONAL RETAIL MERCHANDISER 02/05/2015 Office visit Swapna Isaacs APRN 03/27/2014 Office visit Swapna Isaacs SEASONAL RETAIL MERCHANDISER 04/01/2013 Office visit Swapna Isaacs SEASONAL RETAIL MERCHANDISER 03/19/2013 Office visit Valeria Maldonado SEASONAL RETAIL MERCHANDISER 01/13/2013 Office visit Valeria Maldonado SEASONAL RETAIL MERCHANDISER 11/28/2010 Office visit Reshma BELTRAN 08/26/2010 Office visit Reshma BELTRAN
--- OUTSIDE RECORDS SUMMARY | 2018-10-18 04:50 | XMS REPORT ---
Author Author Swapna Isaacs [facility] Address [address] [place], [place] [address] Care Team Providers Care Bit Sharpener Name Role Phone Swapna Isaacs PCP Swapna Isaacs PreferredProvider Allergies and Adverse Reactions Name Reaction Notes NO KNOWN DRUG ALLERGIES Plan of Treatment Planned Activity Comments Planned Date Planned Time Plan/Goal CBC With Auto Differential 06/21/2017 12:00 AM CMP (comprehensive metabolic panel) 06/21/2017 12:00 AM .Lipid Panel 06/21/2017 12:00 AM Medications Active Name Start Date Estimated Completion Date SIG Comments mupirocin 2 % topical ointment 08/26/2013 apply a small amount to the affected area by topical route 3 times per day Humira subcutaneous naproxen 500 mg oral tablet 06/21/2017 take 1 tablet (500 mg) by oral route 2 times per day with food for 30 days lisinopril 10 mg oral tablet 06/21/2017 TAKE 1 TABLET ONCE DAILY phentermine 37.5 mg oral tablet 06/21/2017 take 1 tablet (37.5 mg) by oral route once daily before breakfast Name Start Date Expiration Date SIG Comments [place]-Smoothe/FS Scalp Oil 0.01 % scalp oil 08/26/2010 [...] HC BMI BSA BMI Percentile O2 Sat(%) 06/21/2017 1:42:00 PM 132 mmHg 72 mmHg [...] F 225.6 lbs 69.75 in 32.60 kg/m2 2.2441 m 97 % 11/28/2010 2:46:00 PM 128 mmHg 76 mmHg 72 bpm 16 rpm 98.2 F 205.125 lbs 69.75 in 29.6434 kg/m 2.14 m2 08/26/2010 8:21:00 AM 132 mmHg 70 mmHg 72 bpm 16 rpm 98.2 F 204.5 lbs 70 in 29.34 kg/m2 2.1404 m Social History Name Description Comments No Tobacco Use Living with significant other Shipping History of Procedures Date Ordered Description Order Status 02/05/2015 12:00 AM Decadron, Per 1 Mg [facility]# [id number] Reviewed 02/05/2015 12:00 AM Depo-Medrol 40mg Reviewed [...] 2017 1:45PM Tendonitis Jun 21 2017 1:45PM Payers Insurance Name Company Name Plan Name Plan Number Policy Number Policy Group Number Start Date BCBS Bcbs [facility] [id number] Tuesday, 2013 BCBS [employer]cbs [facility] [id number] N/A BCBS [employer]cbs [facility] [id number] N/A BCBS [employer] [facility] [id number] N/A History of Encounters Visit Date Visit Type Provider 06/21/2017 Office visit Swapna Isaacs APRN 07/26/2016 Office visit Saleem Pena APRN 07/24/2016 Office visit Swapna Isaacs CONVEYOR TENDER 06/02/2016 Office visit Swapna Isaacs APRN 04/28/2016 Office visit Swapna Isaacs APRN 03/24/2016 Office visit Swapna Isaacs APRN 05/21/2015 Office visit Valeria Maldonado APRN 04/15/2015 Office visit Swapna Isaacs APRN 03/12/2015 Office visit Swapna Isaacs APRN 02/05/2015 Office visit Swapna Isaacs APRN 03/27/2014 Office visit Swapna Isaacs APRN 04/01/2013 Office visit Swapna Isaacs APRN 03/19/2013 Office visit Valeria Maldonado CONVEYOR TENDER 01/13/2013 Office visit Valeria Maldonado CONVEYOR TENDER 11/28/2010 Office visit Reshma BELTRAN 08/26/2010 Office visit Reshma BELTRAN
--- OUTSIDE RECORDS SUMMARY | 2018-10-18 04:50 | XMS REPORT ---
Author Swapna Chávez [facility] Address [address] [place], [place] [address] Care Team Providers Care Glass Technologist Name Role Phone Swapna Isaacs PCP Unavailable [...] ONCE DAILY phentermine 37.5 mg oral tablet 03/12/2015 take 1 tablet by oral route daily Name Start Date Expiration Date SIG Comments [place]-Smoothe/FS Scalp Oil 0.01 % topical oil 08/26/2010 [...] HC BMI BSA BMI Percentile O2 Sat(%) 03/12/2015 8:41:00 AM 126 mmHg 84 mmHg [...] 12:00 AM Decadron, Per 1 Mg [facility]# [id number] Reviewed 02/05/2015 12:00 AM Depo-Medrol 40mg Reviewed [...] 2015 8:42AM Psoriasis Mar 12 2015 8:42AM Payers Insurance Name Company Name Plan Name Plan Number Policy Number Policy Group Number Start Date [employer] [place] [id number] Tuesday, 2013 [employer] [place] [id number] N/A [employer] [place] [id number] N/A [employer] [place] [id number] N/A History of Encounters Visit Date Visit Type Provider 03/12/2015 Office visit Swapna Isaacs APRN 02/05/2015 Office visit Swapna Isaacs APRN 03/27/2014 Office visit Swapna Isaacs APRN 04/01/2013 Office visit Swapna Isaacs APRN 03/19/2013 Office visit Valeria Maldonado APRN 01/13/2013 Office visit Valeria Maldonado APRN 11/28/2010 Office visit Reshma BELTRAN 08/26/2010 Office visit Reshma BELTRAN
--- OUTSIDE RECORDS SUMMARY | 2018-10-18 04:51 | XMS REPORT ---
Author Author Swapna Isaacs [facility] Address [address] [place], [place] [address] Care Team Providers Care New Order Clerk Name Role Phone Swapna Isaacs PCP Unavailable [...] ONCE DAILY phentermine 37.5 mg oral tablet 04/28/2016 take 1 tablet by oral route daily Name Start Date Expiration Date SIG Comments [place]-Smoothe/FS Scalp Oil 0.01 % scalp oil 08/26/2010 [...] HC BMI BSA BMI Percentile O2 Sat(%) 04/28/2016 8:00:00 AM 124 mmHg 68 mmHg [...] 02/05/2015 12:00 AM Decadron, Per 1 Mg [facility]# [id number] Reviewed 02/05/2015 12:00 AM Depo-Medrol 40mg Reviewed [...] 8:02AM Essential hypertension Apr 28 2016 8:02AM Payers Insurance Name Company Name Plan Name Plan Number Policy Number Policy Group Number Start Date [facility] [facility] [id number] Tuesday, 2013 [facility] [id number] N/A BC[facility] [employer] [facility] [id number] N/A BCBS [employer] [facility] [id number] N/A History of Encounters Visit Date Visit Type Provider 04/28/2016 Office visit Swapna Isaacs COLLATOR 03/24/2016 Office visit Swapna Isaacs COLLATOR 05/21/2015 Office visit Valeria Maldonado COLLATOR 04/15/2015 Office visit Swapna Isaacs COLLATOR 03/12/2015 Office visit Swapna Isaacs COLLATOR 02/05/2015 Office visit Swapna Isaacs COLLATOR 03/27/2014 Office visit Swapna Isaacs COLLATOR 04/01/2013 Office visit Swapna Isaacs COLLATOR 03/19/2013 Office visit Valeria Maldonado COLLATOR 01/13/2013 Office visit Valeria Maldonado COLLATOR 11/28/2010 Office visit Reshma BELTRAN 08/26/2010 Office visit Reshma BELTRAN
--- OUTSIDE RECORDS SUMMARY | 2018-10-18 04:51 | XMS REPORT | Continuity of Care Document ---
Author Organization Unknown Address Unknown Allergies There is no data. Medications There is no data. Problems There is no data. Procedures There is no data. Results There is no data. Encounters ACCT No. Visit Date/Time Discharge Status Pt. Type Provider Facility Loc./Unit Complaint [id number] 06/27/2018 14:41:59 06/27/2018 23:59:59 CLS Outpatient WalkerSwapna [id number] 06/21/2017 14:35:00 06/21/2017 23:59:59 CLS Outpatient WalkerSwapna [id number] 07/26/2016 19:22:24 07/26/2016 23:59:59 CLS Outpatient Saleem Pena [id number] 07/24/2016 10:32:40 07/24/2016 23:59:59 CLS Outpatient WalkerSwapna [id number] 06/02/2016 08:58:51 06/02/2016 23:59:59 CLS Outpatient Walker, Swapna [id number] 04/28/2016 08:55:01 04/28/2016 23:59:59 CLS Outpatient WalkerSwapna [id number] 03/24/2016 10:05:35 03/24/2016 23:59:59 CLS Outpatient Walker, Swapna [id number] 05/21/2015 09:16:08 05/21/2015 23:59:59 CLS Outpatient Valeria Maldonado [id number] 04/15/2015 09:35:11 04/15/2015 23:59:59 CLS Outpatient WalkerSwapna [id number] 03/12/2015 09:37:20 03/12/2015 23:59:59 CLS Outpatient WalkerSwapna [id number] 02/05/2015 11:30:56 02/05/2015 23:59:59 CLS Outpatient Walker, Swapna [id number] 03/27/2014 11:20:57 03/27/2014 23:59:59 CLS Outpatient Walker Swapna
--- OUTSIDE RECORDS SUMMARY | 2018-10-18 04:51 | XMS REPORT ---
Author Author Swapna Isaacs [facility] Address [address] [place], [place] [id number] Care Team Providers Care Dietetics Teacher Name Role Phone Swapna Isaacs PCP Unavailable [...] with the evening meal for 30 days Name Start Date Expiration Date SIG Comments [place]-Smoothe/FS Scalp Oil 0.01 % scalp oil 08/26/2010 [...] 02/05/2015 12:00 AM Decadron, Per 1 Mg [facility]# [id number] Reviewed 02/05/2015 12:00 AM Depo-Medrol 40mg Reviewed [...] Number Start Date [employer] [place] [id number] Tuesday, 2013 [employer] [place] [id number] N/A [employer] [place] [id number] N/A [id number] History of Encounters Visit Date Visit Type Provider 06/02/2016 Office visit Swapna Isaacs APRN 04/28/2016 Office visit Swapna Isaacs APRN 03/24/2016 Office visit Swapna Isaacs [employer] 05/21/2015 Office visit Valeria Maldonado [employer]DER 04/15/2015 Office visit Swapna Isaacs APRN 03/12/2015 Office visit Swapna Isaacs APRN 02/05/2015 Office visit Swapna Isaacs APRN 03/27/2014 Office visit Swapna Isaacs APRN 04/01/2013 Office visit Swapna Isaacs APRN 03/19/2013 Office visit Valeria Maldonado [employer] B[employer]DER 01/13/2013 Office visit Valeria Maldonado [employer]RA[employer]DER 11/28/2010 Office visit Reshma BELTRAN 08/26/2010 Office visit Reshma BELTRAN
--- OUTSIDE RECORDS SUMMARY | 2018-10-18 04:51 | XMS REPORT ---
Author Swapna Chávez [facility] Address [address] [place], [place] [id number] Care Team Providers Care Chinese Herbalist Name Role Phone Swapna Isaacs PCP Unavailable [...] Name Start Date Expiration Date SIG Comments [place]-Smoothe/FS Scalp Oil 0.01 % topical oil 08/26/2010 [...] 02/05/2015 12:00 AM Decadron, Per 1 Mg [facility] [place] [id number] Reviewed 02/05/2015 12:00 AM Depo-Medrol 40mg Reviewed [...] Group Number Start Date [employer] [place] [id number] Tuesday, 2013 [employer] [place] [id number] N/A [employer] [place] [id number] N/A [employer] [place] [id number] N/A History of Encounters Visit Date Visit Type Provider 03/12/2015 Office visit Swapna Isaacs APRN 02/05/2015 Office visit Swapna Isaacs APRN 03/27/2014 Office visit Swapna Isaacs APRN 04/01/2013 Office visit Swapna Isaacs APRN 03/19/2013 Office visit Valeria Maldonado APRN 01/13/2013 Office visit Valeria Maldonado APRN 11/28/2010 Office visit Reshma BELTRAN 08/26/2010 Office visit Reshma BELTRAN
[2018-10-18] MEDS ORDERED: ASPIRIN 81 MG CHEW (CHILDREN'S ASA) PO ONE (05:00)
[2018-10-18 05:06] LABS: BASOPHILS # (AUTO) 0.1 10^3/uL (0.0-0.1); BASOPHILS % (AUTO) 1 % (0-10); EOSINOPHILS # (AUTO) 0.4 10^3/uL (0.0-0.3); EOSINOPHILS % (AUTO) 4 % (0-10); HEMATOCRIT 46 % (40-54); HEMOGLOBIN 15.9 G/DL (13.3-17.7); LYMPHOCYTES # (AUTO) 3.7 X 10^3 (1.0-4.0); LYMPHOCYTES % (AUTO) 42 % (12-44); MEAN CORPUSCULAR HEMOGLOBIN 31 PG (25-34); MEAN CORPUSCULAR HGB CONC 35 G/DL (32-36); MEAN CORPUSCULAR VOLUME 88 FL (80-99); MEAN PLATELET VOLUME 9.8 FL (7.4-10.4); MONOCYTES # (AUTO) 0.9 X 10^3 (0.0-1.0); MONOCYTES % (AUTO) 11 % (0-12); NEUTROPHILS # (AUTO) 3.8 X 10^3 (1.8-7.8); NEUTROPHILS % (AUTO) 43 % (42-75); PLATELET COUNT 234 10^3/uL (130-400); RED CELL DISTRIBUTION WIDTH 12.3 % (10.0-14.5); WHITE BLOOD COUNT 8.8 10^3/uL (4.3-11.0)
[2018-10-18 05:14] LABS: INR 0.9 (0.8-1.4); PROTHROMBIN TIME PATIENT 12.3 SEC (12.2-14.7)
[2018-10-18 05:19] LABS: ALANINE AMINOTRANSFERASE 64 U/L (0-55); ALBUMIN 4.7 GM/DL (3.2-4.5); ALKALINE PHOSPHATASE 85 U/L (40-136); BILIRUBIN,TOTAL 0.5 MG/DL (0.1-1.0); BUN/CREATININE RATIO 16; CALCIUM 10.2 MG/DL (8.5-10.1); CARBON DIOXIDE 23 MMOL/L (21-32); CHLORIDE 106 MMOL/L (98-107); CREATININE SERUM 0.93 MG/DL (0.60-1.30); GFR ESTIMATED > 60; GLUCOSE 93 MG/DL (70-105); MAGNESIUM 2.3 MG/DL (1.8-2.4); POTASSIUM 3.8 MMOL/L (3.6-5.0); SODIUM 142 MMOL/L (135-145); TOTAL PROTEIN 7.4 GM/DL (6.4-8.2)
--- NOTE | 2018-10-18 06:42 | ED Chest Pain ---
General Chief Complaint: Chest Pain Stated Complaint: CP,CLAMMY,LEFT HAND NUMB Nursing Triage Note: Pt amb to room #10 w/o difficulty. a&ox4. 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 Reports hx HTN. Nursing Sepsis Screen: No Definite Risk Source: patient Exam Limitations: no limitations (PRIYANK SHAH MD) History of Present Illness Date Seen by Provider: October 18, 2018 Time Seen by Provider: 05:10 Initial Comments Here with report of right-sided chest pain that was associated with sweating. Onset at about 4:30 when he went to work. States that he went to the bathroom and had a bowel movement and he still had the chest pain afterwards. This is when he started sweating. He told his boss who brought him to the emergency department. He arrives better but with significant event lasting at least 30 minutes. He does take phentermine for weight loss and lisinopril for hypertension. No significant family history. Timing/Duration: 1/2 hour, changing over time Severity/Quality: moderate, aching Location: central Radiation: no radiation Activities at Onset: none Modifying Factors: improves with rest ASA po IMPROVEMENT LEAD: No NTG SL IMPROVEMENT LEAD: No Associated Symptoms: No abdominal pain, No back pain; diaphoresis; No fever/ chills, No nausea/vomiting, No shortness of breath, No weakness (PRIYANK SHAH MD) Allergies and Home Medications Allergies Coded Allergies: No Known Drug Allergies (Unverified , 10/18/18) Patient Home Medication List Home Medication List Reviewed: Yes (PRIYANK SHAH MD) Review of Systems Review of Systems Constitutional: see HPI; No chills, No fever EENTM: No Symptoms Reported Respiratory: Denies Shortness of Air, Denies Wheezing Cardiovascular: Chest Pain; Denies Edema Gastrointestinal: Denies Abdominal Pain, Denies Vomiting Genitourinary: No Symptoms Reported Musculoskeletal: No back pain, No neck pain Skin: no symptoms reported Psychiatric/Neurological: See HPI, Numbness; Denies Weakness (PRIYANK SHAH MD) All Other Systems Reviewed Negative Unless Noted: Yes (PRIYANK SHAH MD) Past Jgfusav-Qnjttj-Nxzpln Hx Past Med/Social Hx: Reviewed Nursing Past Med/Soc Hx (PRIYANK SHAH MD) Patient Social History Alcohol Use: Denies Use Recreational Drug Use: No Smoking Status: Never a Smoker 2nd Hand Smoke Exposure: No Recent Foreign Travel: No Contact w/Someone Who Travel: No Recent Infectious Disease Expo: No Recent Hopitalizations: No (PRIYANK SHAH MD) Seasonal Allergies Seasonal Allergies: No (PRIYANK SHAH MD) Past Medical History Surgeries: No Respiratory: No Cardiac: Yes Hypertension Neurological: No Genitourinary: No Gastrointestinal: No Musculoskeletal: No Endocrine: Yes Diabetes, Non-Insulin dep HEENT: No Cancer: No Psychosocial: No Integumentary: No (PRIYANK SHAH MD) Family Medical History Reviewed Nursing Family Hx (PRIYANK SHAH MD) No Pertinent Family Hx (PRIYANK SHAH MD) Physical Exam Vital Signs Vital Signs - First Documented 10/18/18 04:42 Temp 98.0 Pulse 87 Resp 20 B/P (MAP) 137/91 (106) Pulse Ox 100 O2 Delivery Room Air (JAROD LIGHT) Vital Signs Capillary Refill : Less Than 3 Seconds (PRIYANK SHAH MD) Height, Weight, BMI Height: 5'10.00" Weight: 211lbs. oz. 95.417961bc; BMI Method:Stated General Appearance: No Apparent Distress, WD/WN HEENT: PERRL/EOMI, Pharynx Normal Neck: Non Tender, Supple Respiratory: Lungs Clear, Normal Breath Sounds Cardiovascular: Regular Rate, Rhythm, No Murmur Gastrointestinal: Non Tender, Soft Extremity: Normal Inspection, Normal Range of Motion, Non Tender, No Calf Tenderness Neurologic/Psychiatric: Alert, Oriented x3, No Motor/Sensory Deficits Skin: Normal Color, Warm/Dry (PRIYANK SHAH MD) Progress/Results/Core Measures Results/Orders Lab Results Laboratory Tests Test 10/18/18 04:50 10/18/18 08:30 Range/Units White Blood Count 8.8 4.3-11.0 10^3/uL Red Blood Count 5.22 4.35-5.85 10^6/uL Hemoglobin 15.9 13.3-17.7 G/DL Hematocrit 46 40-54 % Mean Corpuscular Volume 88 80-99 FL Mean Corpuscular Hemoglobin 31 25-34 PG Mean Corpuscular Hemoglobin Concent 35 32-36 G/DL Red Cell Distribution Width 12.3 10.0-14.5 % Platelet Count 234 130-400 10^3/uL Mean Platelet Volume 9.8 7.4-10.4 FL Neutrophils (%) (Auto) 43 42-75 % Lymphocytes (%) (Auto) 42 12-44 % Monocytes (%) (Auto) 11 0-12 % Eosinophils (%) (Auto) 4 0-10 % Basophils (%) (Auto) 1 0-10 % Neutrophils # (Auto) 3.8 1.8-7.8 X 10^3 Lymphocytes # (Auto) 3.7 1.0-4.0 X 10^3 Monocytes # (Auto) 0.9 0.0-1.0 X 10^3 Eosinophils # (Auto) 0.4 H 0.0-0.3 10^3/uL Basophils # (Auto) 0.1 0.0-0.1 10^3/uL Prothrombin Time 12.3 12.2-14.7 SEC INR Comment 0.9 0.8-1.4 Activated Partial Thromboplast Time 32 24-35 SEC Sodium Level 142 135-145 MMOL/L Potassium Level 3.8 3.6-5.0 MMOL/L Chloride Level 106 98-107 MMOL/L Carbon Dioxide Level 23 21-32 MMOL/L Anion Gap 13 5-14 MMOL/L Blood Urea Nitrogen 15 7-18 MG/DL Creatinine 0.93 0.60-1.30 MG/DL Estimat Glomerular Filtration Rate > 60 BUN/Creatinine Ratio 16 Glucose Level 93 70-105 MG/DL Calcium Level 10.2 H 8.5-10.1 MG/DL Corrected Calcium 8.5-10.1 MG/DL Magnesium Level 2.3 1.8-2.4 MG/DL Total Bilirubin 0.5 0.1-1.0 MG/DL Aspartate Amino Transf (AST/SGOT) 41 H 5-34 U/L Alanine Aminotransferase (ALT/SGPT) 64 H 0-55 U/L Alkaline Phosphatase 85 40-136 U/L Myoglobin 79.3 10.0-92.0 NG/ML Troponin I < 0.028 0.347 *H <0.028 NG/ML Total Protein 7.4 6.4-8.2 GM/DL Albumin 4.7 H 3.2-4.5 GM/DL (JAROD LIGHT) My Orders Orders - JAROD LIGHT Troponin I (10/18/18 08:00) General/Regular (10/18/18 Breakfast) Ekg Tracing (10/18/18 08:20) Ticagrelor Tablet (Brilinta Tablet) (10/18/18 09:30) Enoxaparin Injection (Lovenox Injection) (10/18/18 09:30) (JAROD LIGHT) Medications Given in ED Current Medications Medications Dose Ordered Sig/Coco Route Start Time Stop Time Status Last Admin Dose Admin Aspirin 324 mg ONCE ONCE PO 10/18/18 05:00 10/18/18 05:01 DC 10/18/18 05:09 324 MG Enoxaparin Sodium 100 mg ONCE ONCE SC 10/18/18 09:30 10/18/18 09:31 DC 10/18/18 10:35 100 MG Ticagrelor 180 mg ONCE ONCE PO 10/18/18 09:30 10/18/18 09:31 DC 10/18/18 10:34 180 MG (JAROD LIHGT) Vital Signs/I&O 10/18/18 04:42 Temp 98.0 Pulse 87 Resp 20 B/P (MAP) 137/91 (106) Pulse Ox 100 O2 Delivery Room Air (JAROD LIGHT) Blood Pressure Mean: 106 Progress Progress Note : Progress Note Seen and evaluated. IV, labs, EKG, ASA 324 mg by mouth ordered. Monitor patient. 0600: Labs reviewed and no acute findings currently. We will do repeat troponin. Patient instructed to stop phentermine. Case checked out to Dr. Light pending repeat labs. Patient without pain currently. (PRIYANK SHAH MD) Progress Note : Time: 06:54 Progress Note Assumed care of the patient at shift change. We have ordered a repeat troponin for approximately 4 hours after that time his pain started. We will repeat an EKG. The patient says the pain only lasted for about 10 minutes total and has not had any discomfort since he's been here. His is familiar with Dr. Miguel Ángel Kim [place] where they reside and he would prefer to follow-up there. (JAROD LIGHT) Initial ECG Impression Date: October 18, 2018 Initial ECG Impression Time: 04:46 Initial ECG Rate: 88 Initial ECG Rhythm: Normal Sinus Initial ECG Intervals: Normal Initial ECG Impression: Normal Initial ECG Comparisson: No Previous ECG Available Comment Sinus rhythm with normal axis. No evidence of ST elevation VA. Consideration for right ventricular hypertrophy. Interpreted by me. (PRIYANK SHAH MD) EKG : EKG Time: 08:26 Rate: 74 Rhythm: Normal Sinus Intervals: Normal ECG Comparisson: Unchanged ECG Impression: Normal Comment No ST elevation or depression. (JAROD LIGHT) Diagnostic Imaging Diagonstic Imaging: Xray Plain Films/CT/US/NM/MRI: chest (1v) Comments [facility], [place] NAME: KAILEE WHITTEN [facility] REC#: [id number] PT STATUS: REG ER : 1980 PHYSICIAN: PRIYANK SHAH MD ADMIT DATE: 10/18/18/ER Draft Date of Exam:10/18/18 CHEST 1 VIEW, AP/PA ONLY EXAM: CHEST 1 VIEW, AP/PA ONLY INDICATION: Chest pain. COMPARISON: None. FINDINGS: Normal heart size and pulmonary vascularity. No dense consolidation, pleural effusion or pneumothorax. No acute osseous findings. IMPRESSION: Negative chest. Dictated on workstation # [id number] Dict: 10/18/18 0645 Trans: 10/18/18 0646 [id number] Interpreted by: ESPERANZA PARDO MD Electronically signed by: Reviewed: Reviewed by Me (JAROD LIGHT) Departure Communication (Admissions) Time/Spoke to Admitting Phy: 09:30 Discussed the case with Dr. Kendrick and he agrees to admit the patient Time/Spoke to Consulting Phy: 09:30 Discussed the case with Dr. Rodriguez and he agrees to consult on the patient of medicine will admit and he will see the patient was afternoon. (JAROD LIGHT) Impression Primary Impression: NSTEMI (non-ST elevated myocardial infarction) Additional Impression: Phentermine adverse reaction Qualified Codes: T50.5X5A - Adverse effect of appetite depressants, initial encounter Disposition: HOME, SELF-CARE Condition: Stable Admissions Decision to Admit Reason: Admit from ER (General) Decision to Admit/Date: October 18, 2018 Time/Decision to Admit Time: 09:30 (JAROD LIGHT) Departure-Patient Inst. Referrals: PAMELA APONTE (PCP/Family) Primary Care Physician PRIYANK SHAH MD October 18, 2018 06:42 JAROD LIGHT October 18, 2018 06:57
--- NOTE | 2018-10-18 06:46 | Diagnostic Imaging Report ---
EXAM: CHEST 1 VIEW, AP/PA ONLY INDICATION: Chest pain. COMPARISON: None. FINDINGS: Normal heart size and pulmonary vascularity. No dense consolidation, pleural effusion or pneumothorax. No acute osseous findings. IMPRESSION: Negative chest. Dictated by: Dictated on workstation # [id number]
--- NOTE | 2018-10-18 07:13 | NUR ---
Report given to MADDI Lopez to assume care of pt @ this time.
--- NOTE | 2018-10-18 07:56 | NUR ---
breakfast ordered for this pt at this time
[2018-10-18] MEDS ORDERED: TICAGRELOR 90 MG TABLET (BRILINTA) PO ONE (09:30)
[2018-10-18] MEDS ORDERED: ENOXAPARIN 100 MG/1 ML (LOVENOX) SYR SC ONE (09:30)
--- OUTSIDE RECORDS SUMMARY | 2018-10-18 10:29 | XMS REPORT | Continuity of Care Document ---
Author Organization Unknown Address Unknown Allergies There is no data. Medications There is no data. Problems There is no data. Procedures There is no data. Results There is no data. Encounters ACCT No. Visit Date/Time Discharge Status Pt. Type Provider Facility Loc./Unit Complaint [id number] 06/27/2018 14:41:59 06/27/2018 23:59:59 CLS Outpatient WalkerSwapna [id number] 06/21/2017 14:35:00 06/21/2017 23:59:59 CLS Outpatient WalkerSwapna [id number] 07/26/2016 19:22:24 07/26/2016 23:59:59 CLS Outpatient Saleem Pena [id number] 07/24/2016 10:32:40 07/24/2016 23:59:59 CLS Outpatient WalkerSwapna [id number] 06/02/2016 08:58:51 06/02/2016 23:59:59 CLS Outpatient Walker, Swapna [id number] 04/28/2016 08:55:01 04/28/2016 23:59:59 CLS Outpatient WalkerSwapna [id number] 03/24/2016 10:05:35 03/24/2016 23:59:59 CLS Outpatient Walker, Swapna [id number] 05/21/2015 09:16:08 05/21/2015 23:59:59 CLS Outpatient Valeria Maldonado [id number] 04/15/2015 09:35:11 04/15/2015 23:59:59 CLS Outpatient WalkerSwapna [id number] 03/12/2015 09:37:20 03/12/2015 23:59:59 CLS Outpatient WalkerSwapna [id number] 02/05/2015 11:30:56 02/05/2015 23:59:59 CLS Outpatient Walker, Swapna [id number] 03/27/2014 11:20:57 03/27/2014 23:59:59 CLS Outpatient Walker Swapna
--- NOTE | 2018-10-18 11:08 | NUR ---
KAILEE WHITTEN admitted to room CU2-1, with an admitting diagnosis of NSTEMI, on 10/18/18 from ER via , accompanied by STAFF.KAILEE WHITTEN introduced to surroundings, call light, bed controls, phone, TV, temperature control, lights, meal times, smoking policy, visitor policy, side rail policy, bathrooms and showers. Patient Rights given to patient in the handbook. KAILEE WHITTEN verbalizes understanding that [facility] is not responsible for the loss or damage to any personal effects or valuables that are kept in the patients posession during their hospitalization. The following Patient Care Plans were discussed with the PT: Discharge Planning, PAIN,ANXIETY, and IMPAIRED TISSUE PERFUSION. KAILEE WHITTEN verbalizes understanding of Interdisciplinary Patient Education. Patient and family were informed about the Rapid Response Team and its purpose.
[2018-10-18] MEDS ORDERED: NITROGLYCERIN 0.4 MG SL TABS BTL 25'S SL PRN (11:45)
[2018-10-18] MEDS ORDERED: morphine INJ 4 MG/ML 1 ML (VIAL/SYRINGE) IVP PRN (11:45)
[2018-10-18] MEDS ORDERED: ONDANSETRON 4 MG/2 ML (SDV) Z0FRAN IVP PRN (11:45)
[2018-10-18] MEDS: LACTATED RINGERS 1,000 ML IV SCH ×2 (11:53→20:18)
[2018-10-18] MEDS ORDERED: PHEN37.53 PO (12:14)
[2018-10-18] MEDS ORDERED: LISI10TA2 PO (12:14)
[2018-10-18] MEDS ORDERED: ADAL40PE SC (12:14)
--- NOTE | 2018-10-18 12:42 | History & Physical-Hospitalist ---
History of Present Illness HPI/Chief Complaint Mr. 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 He denied radiation but quickly became diaphoretic and felt weak. He sweats so much that he steamed up his goggles and had to sit down. He estimates his discomfort lasted about 30 minutes but was easing up by the time he arrived to the emergency room. There her baseline troponin level was normal but one repeated several hours later was elevated. He subsequently admitted to the intensive care unit for presumed non-ST segment elevation CT. He been feeling well and had no previous anginal sounding symptoms shortness of breath or fatigue. Risk factors for coronary artery disease include history of hypertension he also has a history of psoriasis that requires biologic therapy in the form of Humira subcutaneously injected every 2 weeks. He is also been on unknown amount of Tenormin since July for weight loss and denied palpitations or any history of chest discomfort prior to this morning. He is not aware of any family history for coronary artery disease except for possibly one aunt in her 70s. Both parents are living in their upper 50s with no history of vascular disease per his report. Date Seen 10/18/18 Time Seen by a Provider: 12:30 Attending Physician DEZ HOWARD M.D. PCP Swapna Isaacs Referring Physician Date of Admission October 18, 2018 at 10:20 Home Medications & Allergies Home Medications Reviewed patient Home Medication Reconciliation performed by pharmacy medication reconciliations pharmacy technician infusion and/or nursing. Patients Allergies have been reviewed. Allergies Allergies Coded Allergies No Known Drug Allergies (Unverified10/18/18) Past Wvhrnvp-Uybsdm-Npgdae Hx Past Med/Social Hx: Reviewed Nursing Past Med/Soc Hx, Reviewed and Corrections made Patient Social History Alcohol Use: Denies Use Recreational Drug Use: No Smoking Status: Never a Smoker 2nd Hand Smoke Exposure: No Recent Foreign Travel: No Contact w/other who traveled: No Recent Hopitalizations: No Recent Infectious Disease Expo: No Seasonal Allergies Seasonal Allergies: No Past Medical History Cardiac: Hypertension Endocrine: Diabetes, Non-Insulin dep Family History Reviewed Nursing Family Hx No Pertinent Family Hx Review of Systems Constitutional: diaphoresis, weakness Respiratory: no symptoms reported; No see HPI, No cough, No dyspnea on exertion , No hemoptysis, No orthopnea, No phlegm; short of breath; No stridor, No wheezing, No other Cardiovascular: see HPI, chest pain; No edema, No Hx of Intervention, No palpitations, No syncope, No vascular heart diseas, No other Physical Exam Physical Exam Vital Signs Vital Signs - First Documented 10/18/18 04:42 Temp 98.0 Pulse 87 Resp 20 B/P (MAP) 137/91 (106) Pulse Ox 100 O2 Delivery Room Air Capillary Refill : Less Than 3 Seconds Height, Weight, BMI Height: 5'10.00" Weight: 212lbs. 8.0oz. 96.910835jp; 30.5 BMI Method:Stated General Appearance: No Apparent Distress, WD/WN, Anxious Neck: Full Range of Motion, Normal Inspection, Non Tender Respiratory: Chest Non Tender, Lungs Clear, Normal Breath Sounds, No Accessory Muscle Use, No Respiratory Distress Cardiovascular: Regular Rate, Rhythm, No Edema, No Gallop, No JVD, No Murmur, Normal Peripheral Pulses Gastrointestinal: Normal Bowel Sounds, No Organomegaly, No Pulsatile Mass, Non Tender, Soft Extremity: Normal Capillary Refill, Normal Inspection, Normal Range of Motion, Non Tender, No Calf Tenderness, No Pedal Edema Neurologic/Psychiatric: Alert, Oriented x3, No Motor/Sensory Deficits Skin: Normal Color, Warm/Dry, Other (No visible evidence for psoriasis) Results Results/Procedures Labs Laboratory Tests 10/18/18 04:50 Patient resulted labs reviewed. Assessment/Plan Admission Diagnosis A/P 1. Acute non-ST segment elevation CT antiplatelet therapy has been initiated and Dr. Rodriguez is been consulted with likely heart catheterization to follow. 2. Hypertension continue lisinopril. 3. History of psoriasis currently under good control on Humira 4. Stage I obesity advised the patient discontinue phentermine and considering number 1 Admission Status: Inpatient Order (span 2 midnights) Reason for Inpatient Admission: See admission diagnosis Clinical Quality Measures AMI/AHF: ASA po Prior to arrival: DEZ Silva MD October 18, 2018 12:42
--- NOTE | 2018-10-18 12:55 | Consultation-Cardiology ---
HPI-Cardiology Cardiology Consultation: Date of Consultation 10/18/18 Date of Admission Attending Physician Ryan Kendrick MD Admitting Physician Swapna Isaacs Consulting Physician Cathie RODRIGUEZ MD HPI: Time Seen by a Provider: 11:00 Chief Complaint: Chest pain This is a 37-year-old gentleman with no history of diabetes, hypertension, hyperlipidemia area did denies active smoking. He does not have family history of premature CAD. He presented with a 15 minutes episode of chest pain with shortness of breath and sweating. Substernal chest pain with severe pressure. Moderate intensity. No radiation. No exacerbating or relieving factors. Relieved with nitroglycerin in the ER. No flulike symptoms recently. Chest pain is nonreproducible. Review of Systems-Cardiology Review of Systems Constitutional: As described under HPI; No As described under HPI, No no symptoms reported, No chills, No fever, No lightheadedness Eyes: No As described under HPI, No no symptoms reported, No blindness, No blurred vision, No contact lenses, No drainage, No decreased acuity, No foreign body sensation, No pain, No vision change Ears/Nose/Throat: No As described under HPI, No no symptoms reported, No chronic hearing loss, No ear discharge, No ear pain, No nasal drainage, No ulcerations Respiratory: No no symptoms reported; As described under HPI; No As described under HPI, No cough, No orthopnea, No shortness of breath, No SOB with excertion ; SOB at rest Cardiovascular: No no symptoms reported; As described under HPI; No As described under HPI; chest pain; No edema, No irregular heart rate, No lightheadedness, No palpitations Gastrointestinal: No no symptoms reported, No As described under HPI, No abdomen distended, No abdominal pain, No blood streaked bowels, No constipation , No diarrhea, No nausea, No vomiting, No stool coloration changes Genitourinary: No As described under HPI, No burning, No dysuria, No discharge , No frequency, No flank pain, No hematuria, No urgency Skin: No rash, No skin related problems, No ulcerations Psychiatric/Neurological: No anxiety, No depression, No seizure, No focal weakness, No syncope Hematologic: No bleeding abnormalities All Other Systems Reviewed Negative Unless Noted: Yes KBE-Nuzcpq-Eenavc Hx Patient Social History Alcohol Use: Denies Use Recreational Drug Use: No Smoking Status: Never a Smoker 2nd Hand Smoke Exposure: No Recent Foreign Travel: No Recent Infectious Disease Expo: No Hospitalization with Isolation: Denies Past Medical History PMH As described under Assessment. Family Medical History Family History: Cardiovascular disease MATERNAL AUNT Allergies and Home Medications Allergies Coded Allergies: No Known Drug Allergies (Unverified , 10/18/18) Home Medications Adalimumab 40 Mg/0.8 Ml Pen.ij.kit, 40 MG SC EVERY 2 WEEKS, (Reported) Lisinopril 10 Mg Tablet, 10 MG PO DAILY, (Reported) Phentermine HCl 37.5 Mg Tablet, 37.5 MG PO DAILY, (Reported) Patient Home Medication List Home Medication List Reviewed: Yes Physical Exam-Cardiology Physical Exam Vital Signs/I&O 10/18/18 10/18/18 10/18/18 10/18/18 04:42 10:46 11:08 11:15 Temp 98.0 Pulse 87 80 83 Resp 20 20 24 B/P (MAP) 137/91 (106) 124/87 (99) 140/101 (114) Pulse Ox 100 97 97 O2 Delivery Room Air Room Air Room Air Room Air 10/18/18 10/18/18 10/18/18 10/18/18 11:35 11:48 12:00 12:00 Temp 98.8 Pulse 77 82 Resp 14 B/P (MAP) 147/94 (111) Pulse Ox 98 O2 Delivery Room Air Room Air Capillary Refill : Less Than 3 Seconds Constitutional: appears stated age, AAO x 3; No apparent distress; well- developed, well-nourished HEENT: PERRL; No normal ENT inspection, No TMs normal, No pharynx normal, No scleral icterus (R), No scleral icterus (L), No pale conjunctivae (R), No pale conjunctivae (L), No photophobia, No TM abnormal (R), No TM abnormal (L), No pharyngeal erythema, No tonsillar exudate, No other, No discharge, No EOMI; hearing is well preserved; No hard of hearing; oral hygience is good; No ulceration, No xanthelasmas are seen Neck: No non-tender, No full range of motion, No supple, No normal inspection, No carotid bruit, No limited range of motion, No lymphadenopathy (R), No lymphadenopathy (L), No tender lateral, No tender midline, No thyromegaly, No other; carotid pulses are 2 + bilaterally; No with good upstrokes Respiratory: No accessory muscle use, No respiratory distress, No chest tender , No chest expansion is symmetric; chest is bilaterally symmetric; No lungs clear to percussion; lungs clear to auscultation; No crackles, No rhonchi, No rales, No stridor, No wheezing, No pleural rub, No other Cardiovascular: regular rate-rhythm; No irregularly irregular, No extra beats, No parasternal heave is noted, No JVD, No edema, No bradycardia, No tachycardia , No point of maximal impulse, No cardiac thrills are palpable; S1 and S2; No gallop/S3, No gallop/S4, No diastolic murmur, No systolic murmur, No friction rub, No click, No other Gastrointestinal: No tender, No soft, No round, No distended, No pulsatile mass , No organomegaly, No guarding, No rebound, No tenderness, No hernia, No mass, No audible bowel sounds, No abnormal bowel sounds, No abdominal bruits, No spleenomegaly, No other Rectal: deferred Extremities: No normal range of motion, No non-tender, No normal inspection, No pedal edema, No calf tenderness, No normal capillary refill, No pelvis stable , No calf tenderness, No inflammation, No pedal edema, No slow capillary refill , No swelling, No other, No abrasion, No clubbing, No cyanosis, No ecchymosis, No laceration, No no lower extremity edema bilateral, No significant edema, No tenderness, No wound Neurologic/Psychiatric: no motor/sensory deficits, alert, normal mood/affect, oriented x 3, power is 5/5 both on sides Skin: No normal color, No warm/dry, No cyanosis, No cool, No diaphoresis, No damp, No ecchymosis, No jaundice, No mottled, No pallor, No rash, No tattoos/ piercings, No ulcerations, No rash on exposed areas, No ulcerations on exposed areas, No other Data Review Labs Laboratory Tests 10/18/18 04:50: White Blood Count 8.8, Red Blood Count 5.22, Hemoglobin 15.9, Hematocrit 46, Mean Corpuscular Volume 88, Mean Corpuscular Hemoglobin 31, Mean Corpuscular Hemoglobin Concent 35, Red Cell Distribution Width 12.3, Platelet Count 234, Mean Platelet Volume 9.8, Neutrophils (%) (Auto) 43, Lymphocytes (%) (Auto) 42, Monocytes (%) (Auto) 11, Eosinophils (%) (Auto) 4, Basophils (%) (Auto) 1, Neutrophils # (Auto) 3.8, Lymphocytes # (Auto) 3.7, Monocytes # (Auto) 0.9, Eosinophils # (Auto) 0.4H, Basophils # (Auto) 0.1, Prothrombin Time 12.3, INR Comment 0.9, Activated Partial Thromboplast Time 32, Sodium Level 142, Potassium Level 3.8, Chloride Level 106, Carbon Dioxide Level 23, Anion Gap 13, Blood Urea Nitrogen 15, Creatinine 0.93, Estimat Glomerular Filtration Rate > 60 , BUN/Creatinine Ratio 16, Glucose Level 93, Calcium Level 10.2H, Corrected Calcium , Magnesium Level 2.3, Total Bilirubin 0.5, Aspartate Amino Transf (AST/ SGOT) 41H, Alanine Aminotransferase (ALT/SGPT) 64H, Alkaline Phosphatase 85, Myoglobin 79.3, Troponin I < 0.028, Total Protein 7.4, Albumin 4.7H 10/18/18 08:30: Troponin I 0.347*H ECG Impression ECG Initial ECG Rhythm: Normal Sinus Initial ECG Impression: Nonspecific Changes A/P-Cardiology Assessment/Admission Diagnosis Non-STEMI, Hypertension Plan Non-STEMI, aspirin, Brilinta, one dose of Lovenox in the ER. We'll schedule for coronary angiography. I'll recommend an echocardiogram. Hypertension, continue Lisinopril. Thank you for your consultation. Please call me if you have any questions. Cheryl Rodriguez MD, FACP, FACC, FSCAI, FHRS, CCDS Interventional Cardiology Cardiac Electrophysiology Vascular Medicine and Endovascular Interventions Clinical Quality Measures AMI/AHF: ASA po Prior to arrival: No DVT/VTE Risk/Contraindication: Risk Factor Score Per Nursin RFS Level Per Nursing on Admit: 1=Low/No VTE PPX Cathie RODRIGUEZ MD October 18, 2018 12:55
[2018-10-18] MEDS ORDERED: ENOXAPARIN 100 MG/1 ML (LOVENOX) SYR SC SCH ×2 (14:15→14:30)
[2018-10-18] MEDS ORDERED: fentaNYL INJECTION 100 MCG/2 ML AMP ONE (14:44)
[2018-10-18] MEDS ORDERED: MIDAZOLAM 5 MG/5 ML (VERSED) VIAL ONE (14:44)
[2018-10-18] MEDS ORDERED: LIDOCAINE 1% INJ 20 ML 20 ML VIAL ONE (14:44)
[2018-10-18] MEDS ORDERED: HEParin (CATH LAB) 2,000 ML IV ONE (14:46)
--- NOTE | 2018-10-18 15:43 | NUR ---
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
--- NOTE | 2018-10-18 16:29 | Cardiac Procedure Note-CS/ASA ---
Pre-Procedure Note Pre-Op Procedure Note H&P Reviewed The H&P was reviewed, patient examined and no changes noted. Date H&P Reviewed: October 18, 2018 Time H&P Reviewed: 15:30 Conscious Sedation Pre-Proced Time 15:30 ASA Score 3 For ASA 3 and 4: Consider anesthesia and medical clearance. Also, for patients with a history of failed moderate sedation consider anesthesia. Airway Lungs Heart ASA score ASA 1: a normal healthy patient ASA 2: a patient with a mild systemic disease (mid diabetes, controlled hypertension, obesity ASA 3: a patient with a severe systemic disease that limits activity (angina , COPD, prior Myocardial infarction) ASA 4: a patient with an incapacitating disease that is a constant threat to life (CHF, renal failure) ASA 5: a moribund patient not expected to survive 24 hrs. (ruptured aneurysm) ASA 6: a declared brain- patient whose organs are being harvested. For emergent operations, add the letter E after the classification Mallampati Classification Grade 1 Sedation Plan Analgesia, Amnesia, Plan communicated to team members, Discussed options with patient/fam, Discussed risks with patient/fam The patient is an appropriate candidate to undergo the planned procedure, sedation, and anesthesia. The patient immediately re-assessed prior to indication. Cathie MARIE MD October 18, 2018 16:29
--- NOTE | 2018-10-18 16:36 | Coronary Angiography Report ---
Coronary Angiography Report DATE OF PROCEDURE: 10/18/18 INDICATION: Non-STEMI. PREOPERATIVE DIAGNOSIS: Non-STEMI. POSTOPERATIVE DIAGNOSIS: Patent epicardial coronary arteries. HISTORY: This is a 37-year-old gentleman with chest pain, sweating, shortness of breath and positive cardiac enzymes. Therefore, the patient was scheduled for coronary angiography. PROCEDURES PERFORMED: 1.Coronary angiography. 2.Left heart catheterization. 3. Aortic arch angiogram, medical necessity, chest pain in a patient with no CAD. Rule out aortic aneurysm and dissection. COMPLICATIONS: None. SPECIMENS: None. ESTIMATED BLOOD LOSS: 10 mL ANESTHESIA: Conscious sedation ANTICOAGULATION: IV heparin CONTRAST: 65 mL. FLUOROSCOPY: 1.8 minutes. FLOUROSCOPY DOSE: 286 mgy. PROCEDURE DETAILS: The patient is a 37 male and was brought to the [employer] [facility] after informed consent was taken. All the risks and complications were explained in detail; this included the risk of bleeding, vascular damage, stroke , [place] and even . The patient was draped and prepped in the usual sterile fashion. Access was gained in the right femoral artery with a 6 Latvian sheath. Coronary angiography and left heart catheterization was performed with a JR4 and JL4 catheter. FINDINGS: 1.Left main: Patent. 2.LAD: Patent. 3.Left circumflex artery: Patent. 4.RCA: Patent. 5.Left heart catheterization: LV pressure 124/7 mmHg. LVEDP 18 mmHg. Aortic pressure 118/83 mmHg. Normal LV function with no wall motion abnormalities. No gradient across the aortic valve. 6. Aortic arch angiogram: Medical necessity, severe chest pain in a patient with no CAD. Aortic aneurysm and dissection needs to be ruled out. No evidence of ascending thoracic aorta aneurysm or dissection. Patent proximal segments of the great arteries including brachycephalic artery, common carotid artery and left subclavian artery. CONCLUSIONS: Patent epicardial coronary arteries. Continue primary prevention measures. Cheryl Rodriguez MD, FACP, FACC, [facility] Interventional Cardiology Cathie RODRIGUEZ MD October 18, 2018 16:36
[2018-10-18] MEDS ORDERED: IBUPROFEN TABLET 200 MG TAB PO PRN (16:45)
[2018-10-18] MEDS ORDERED: PATIENT MAY USE OWN MEDS, ALL PO SCH (16:45)
--- NOTE | 2018-10-18 16:47 | NUR ---
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
[2018-10-18] MEDS: NS IV 1000 ML 1,000 ML IV SCH (18:47)
[2018-10-18] MEDS ORDERED: ATORVASTATIN 40 MG (LIPITOR) TABLET PO SCH (21:00)
[2018-10-18] MEDS: ENOXAPARIN 100 MG/1 ML (LOVENOX) SYR SC SCH (22:24)
[2018-10-19] VITALS: BP 124/81
[2018-10-19 03:25] LABS: BASOPHILS % (AUTO) 0 % (0-10); EOSINOPHILS # (AUTO) 0.3 10^3/uL (0.0-0.3); EOSINOPHILS % (AUTO) 4 % (0-10); HEMATOCRIT 42 % (40-54); HEMOGLOBIN 14.4 G/DL (13.3-17.7); LYMPHOCYTES # (AUTO) 3.8 X 10^3 (1.0-4.0); LYMPHOCYTES % (AUTO) 41 % (12-44); MEAN CORPUSCULAR HEMOGLOBIN 30 PG (25-34); MEAN CORPUSCULAR HGB CONC 35 G/DL (32-36); MEAN CORPUSCULAR VOLUME 88 FL (80-99); MEAN PLATELET VOLUME 9.8 FL (7.4-10.4); MONOCYTES # (AUTO) 0.8 X 10^3 (0.0-1.0); MONOCYTES % (AUTO) 8 % (0-12); NEUTROPHILS # (AUTO) 4.4 X 10^3 (1.8-7.8); NEUTROPHILS % (AUTO) 47 % (42-75); PLATELET COUNT 236 10^3/uL (130-400); RED CELL DISTRIBUTION WIDTH 12.5 % (10.0-14.5); WHITE BLOOD COUNT 9.4 10^3/uL (4.3-11.0)
[2018-10-19 03:43] LABS: BUN/CREATININE RATIO 14; CALCIUM 8.8 MG/DL (8.5-10.1); CARBON DIOXIDE 19 MMOL/L (21-32); CHLORIDE 107 MMOL/L (98-107); CREATININE SERUM 0.74 MG/DL (0.60-1.30); GFR ESTIMATED > 60; GLUCOSE 106 MG/DL (70-105); POTASSIUM 3.5 MMOL/L (3.6-5.0); SODIUM 137 MMOL/L (135-145)
[2018-10-19 03:45] LABS: CHOLESTEROL 154 MG/DL (< 200); HDL CHOLESTEROL 38 MG/DL (40-60); TRIGLYCERIDES 355 MG/DL (<150); VLDL CHOLESTEROL 71 MG/DL (5-40)
[2018-10-19 04:00] VITALS: BP_SYST 127; BP_SYST 140; BP_DIAS 69; BP_DIAS 87
[2018-10-19] MEDS: NS IV 1000 ML 1,000 ML IV SCH (05:14)
[2018-10-19] MEDS: LACTATED RINGERS 1,000 ML IV SCH (05:25)
[2018-10-19 08:17] VITALS: BP 123/89
[2018-10-19] MEDS ORDERED: lisINopril 5 MG (PRINIVIL) TABLET PO SCH (09:00)
[2018-10-19] MEDS ORDERED: ASPIRIN 81 MG CHEW (CHILDREN'S ASA) PO SCH (09:00)
[2018-10-19] MEDS ORDERED: IBUP-2055 PO (10:52)
[2018-10-19] MEDS: ENOXAPARIN 100 MG/1 ML (LOVENOX) SYR SC SCH (11:09)
--- NOTE | 2018-10-19 11:20 | Discharge Summary-Hospitalist ---
Diagnosis/Chief Complaint Date of Admission October 18, 2018 at 10:20 Date of Discharge Discharge Date: October 19, 2018 Admission Diagnosis A/P 1. Acute non-ST segment elevation NE antiplatelet therapy has been initiated and Dr. Rodriguez is been consulted with likely heart catheterization to follow. 2. Hypertension continue lisinopril. 3. History of psoriasis currently under good control on Humira 4. Stage I obesity advised the patient discontinue phentermine and considering number 1 Discharge Summary Discharge Physical Exam Allergies: Coded Allergies: No Known Drug Allergies (Unverified , 10/18/18) Vitals & I&Os Vital Signs Date Time Temp Pulse Resp B/P (MAP) Pulse Ox O2 Delivery O2 Flow Rate FiO2 10/19/18 08:22 Room Air 10/19/18 08:17 96.5 75 17 123/89 (100) 98 General Appearance: No Apparent Distress, WD/WN Respiratory: Chest Non Tender, Lungs Clear, Normal Breath Sounds, No Accessory Muscle Use, No Respiratory Distress Cardiovascular: Regular Rate, Rhythm, No Edema, No Gallop, No JVD, No Murmur, Normal Peripheral Pulses Extremity: Normal Capillary Refill, Normal Inspection, Normal Range of Motion, Non Tender, No Calf Tenderness, No Pedal Edema, Other (No tenderness noted at right catheter site no evidence for hematoma no bruits 2+ femoral pulse) Hospital Course HPI/Chief Complaint Mr. 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 He denied radiation but quickly became diaphoretic and felt weak. He sweats so much that he steamed up his goggles and had to sit down. He estimates his discomfort lasted about 30 minutes but was easing up by the time he arrived to the emergency room. There her baseline troponin level was normal but one repeated several hours later was elevated. He subsequently admitted to the intensive care unit for presumed non-ST segment elevation NE. He been feeling well and had no previous anginal sounding symptoms shortness of breath or fatigue. Risk factors for coronary artery disease include history of hypertension he also has a history of psoriasis that requires biologic therapy in the form of Humira subcutaneously injected every 2 weeks. He is also been on unknown amount of Tenormin since July for weight loss and denied palpitations or any history of chest discomfort prior to this morning. He is not aware of any family history for coronary artery disease except for possibly one aunt in her 70s. Both parents are living in their upper 50s with no history of vascular disease per his report. Hospital course: Patient was admitted to the intensive care unit and had no further chest pain. His initial troponin level of 0.3 decreased to 0.0186 hours later and he underwent cardiac catheterization that revealed no evidence for coronary blockage and no reported abnormalities per Dr. Rodriguez. We discuss likelihood of mild pericarditis. Echo results from Dr.: Rodriguez pending but there is no evidence for heart enlargement and was advised the patient continue when necessary ibuprofen. Suspect that his pain led to a vagal mediated event with presyncope which causes diaphoresis when he also had the urge to have a bowel movement. Acute coronary syndrome ruled out. He was advised to follow- up with his primary care practitioner next week. He will continue his home medications with the addition of 400 mg of ibuprofen every 6 when necessary chest pain. Labs (last 24 hrs) Laboratory Tests 10/18/18 15:00: Troponin I 0.183H 10/18/18 21:29: Troponin I 0.037H 10/19/18 03:02: White Blood Count 9.4, Red Blood Count 4.75, Hemoglobin 14.4, Hematocrit 42, Mean Corpuscular Volume 88, Mean Corpuscular Hemoglobin 30, Mean Corpuscular Hemoglobin Concent 35, Red Cell Distribution Width 12.5, Platelet Count 236, Mean Platelet Volume 9.8, Neutrophils (%) (Auto) 47, Lymphocytes (%) (Auto) 41, Monocytes (%) (Auto) 8, Eosinophils (%) (Auto) 4, Basophils (%) (Auto) 0, Neutrophils # (Auto) 4.4, Lymphocytes # (Auto) 3.8, Monocytes # (Auto) 0.8, Eosinophils # (Auto) 0.3, Basophils # (Auto) 0.0, Erythrocyte Sedimentation Rate 4, Sodium Level 137, Potassium Level 3.5L, Chloride Level 107, Carbon Dioxide Level 19L, Anion Gap 11, Blood Urea Nitrogen 10, Creatinine 0.74, Estimat Glomerular Filtration Rate > 60, BUN/Creatinine Ratio 14, Glucose Level 106H, Calcium Level 8.8, C-Reactive Protein High Sensitivity 0.18, Triglycerides Level 355H, Cholesterol Level 154, LDL Cholesterol Direct 84, VLDL Cholesterol 71H, HDL Cholesterol 38L Patient resulted labs reviewed. Discussion & Recommendations Discharge Planning: <30 minutes discharge planning Discharge Home Medications: Active Scripts Active Ibuprofen 200 Mg Tablet 400 Mg PO Q6H PRN 30 Days Reported Humira (Adalimumab) 40 Mg/0.8 Ml Pen.ij.kit 40 Mg SC EVERY 2 WEEKS Phentermine HCl 37.5 Mg Tablet 37.5 Mg PO DAILY Lisinopril 10 Mg Tablet 10 Mg PO DAILY Instructions to patient/family Please see electronic discharge instructions given to patient. Clinical Quality Measures AMI/AHF: ASA po Prior to arrival: No DVT/VTE Risk/Contraindication: Risk Factor Score Per Nursin RFS Level Per Nursing on Admit: 1=Low/No VTE PPX DEZ HOWARD MD October 19, 2018 11:20
[2018-10-19 11:30] VITALS: BP 138/77
--- NOTE | 2018-10-19 11:53 | NUR ---
KAILEE WHITTEN demonstrates understanding of discharge instructions and accurately returns instructions upon questioning. Copy of Post-Discharge Instructions and Medication Discharge Instructions given to PT. KAILEE WHITTEN is able to manage continuing needs after discharge. Patients belongings returned to PT. Skin dry and intact; no breakdown noted. Patient discharged from [facility] on 10/19/18 at 1153. KAILEE WHITTEN left floor via WC, accompanied by STAFF/FAMILY.
--- NOTE | 2018-10-19 13:09 | Cardiology Progress Note ---
Cardiology SOAP Progress Note Subjective: No cardiac symptoms. Objective: I&O/Vital Signs 10/19/18 10/19/18 10/19/18 10/19/18 04:00 07:00 08:17 08:19 Temp 97.8 96.5 Pulse 86 65 75 Resp 16 17 B/P (MAP) 127/87 (100) 123/89 (100) Pulse Ox 97 98 O2 Delivery Room Air Room Air Room Air 10/19/18 10/19/18 10/19/18 08:22 11:30 11:53 Temp 97.8 Pulse 78 Resp 18 B/P (MAP) 138/77 (97) Pulse Ox 97 O2 Delivery Room Air Room Air 10/19/18 00:00 Intake Total 2100 ml Output Total 600 ml Balance 1500 ml Weight (Pounds): 215 Weight (Ounces): 9.0 Weight (Calculated Kilograms): 97.550372 Constitutional: appears stated age, AAO x 3; No apparent distress; well- developed, well-nourished Respiratory: No accessory muscle use, No respiratory distress, No chest tender , No chest expansion is symmetric; chest is bilaterally symmetric; No lungs clear to percussion; lungs clear to auscultation; No crackles, No rhonchi, No rales, No stridor, No wheezing, No pleural rub, No other Cardiovascular: regular rate-rhythm; No irregularly irregular, No extra beats, No parasternal heave is noted, No JVD, No edema, No bradycardia, No tachycardia , No point of maximal impulse, No cardiac thrills are palpable; S1 and S2; No gallop/S3, No gallop/S4, No diastolic murmur, No systolic murmur, No friction rub, No click, No other Gastrointestional: No tender, No soft, No round, No distended, No pulsatile mass, No organomegaly, No guarding, No rebound, No tenderness, No hernia, No mass, No audible bowel sounds, No abnormal bowel sounds, No abdominal bruits, No spleenomegaly, No other Extremities: No normal range of motion, No non-tender, No normal inspection, No pedal edema, No calf tenderness, No normal capillary refill, No pelvis stable , No calf tenderness, No inflammation, No pedal edema, No slow capillary refill , No swelling, No other, No abrasion, No clubbing, No cyanosis, No ecchymosis, No laceration, No no lower extremity edema bilateral, No significant edema, No tenderness, No wound Neurologic/Psychiatric: no motor/sensory deficits, alert, normal mood/affect, oriented x 3, power is 5/5 both on sides Skin: No normal color, No warm/dry, No cyanosis, No cool, No diaphoresis, No damp, No ecchymosis, No jaundice, No mottled, No pallor, No rash, No tattoos/ piercings, No ulcerations, No rash on exposed areas, No ulcerations on exposed areas, No other Results/Procedures: Labs Laboratory Tests 10/18/18 15:00: Troponin I 0.183H 10/18/18 21:29: Troponin I 0.037H 10/19/18 03:02: White Blood Count 9.4, Red Blood Count 4.75, Hemoglobin 14.4, Hematocrit 42, Mean Corpuscular Volume 88, Mean Corpuscular Hemoglobin 30, Mean Corpuscular Hemoglobin Concent 35, Red Cell Distribution Width 12.5, Platelet Count 236, Mean Platelet Volume 9.8, Neutrophils (%) (Auto) 47, Lymphocytes (%) (Auto) 41, Monocytes (%) (Auto) 8, Eosinophils (%) (Auto) 4, Basophils (%) (Auto) 0, Neutrophils # (Auto) 4.4, Lymphocytes # (Auto) 3.8, Monocytes # (Auto) 0.8, Eosinophils # (Auto) 0.3, Basophils # (Auto) 0.0, Erythrocyte Sedimentation Rate 4, Sodium Level 137, Potassium Level 3.5L, Chloride Level 107, Carbon Dioxide Level 19L, Anion Gap 11, Blood Urea Nitrogen 10, Creatinine 0.74, Estimat Glomerular Filtration Rate > 60, BUN/Creatinine Ratio 14, Glucose Level 106H, Calcium Level 8.8, C-Reactive Protein High Sensitivity 0.18, Triglycerides Level 355H, Cholesterol Level 154, LDL Cholesterol Direct 84, VLDL Cholesterol 71H, HDL Cholesterol 38L A/P: Assessment/Dx: Non-STEMI, Hypertension Plan: Non-STEMI, aspirin, Brilinta, one dose of Lovenox in the ER. Coronary angiography done 10/19/2018 shows normal epicardial coronary arteries. Patient can be discharged to follow-up with primary care physician. Hypertension, continue Lisinopril. Thank you for your consultation. Please call me if you have any questions. Cheryl Rodriguez MD, FACP, FACC, FSCAI, FHRS, CCDS Interventional Cardiology Cardiac Electrophysiology Vascular Medicine and Endovascular Interventions Clinical Quality Measures AMI/AHF: ASA po Prior to arrival: Cathie Nroris MD October 19, 2018 13:09
--- NOTE | 2018-10-22 23:21 | Physician Query-Final Dx ---
KING CHURCH 10/22/18 2321: Final Diagnosis Give Final Diagnosis Please give Final Diagnosis 1. After studies, what was determined to be the principal reason for admission: 1. Mild pericarditis 2. NSTEMI 3. Other, please specify Question 2. After studies was NSTEMI ruled out? 1. Yes, NSTEMI ruled out 2. NSTEMI not ruled out DEZ HOWARD MD 10/25/18 1228: Final Diagnosis Give Final Diagnosis 1. pericarditis MS was ruled out. KING CHURCH October 22, 2018 23:21 DEZ HOWARD MD October 25, 2018 12:28
== END 2018-10-19 11:53 | disposition home or self-care (01) | DRG 287 ==
LOC: ER 04:41 → ICU 10:20
PROVIDERS: ADMIT Internal Medicine; ATTEND Internal Medicine
PROC: 4A023N7 Measurement of Cardiac Sampling and Pressure, Left Heart, Percutaneous Approach (ICD-10-PCS; principal; 2018-10-18)
PROC: B2111ZZ Fluoroscopy of Multiple Coronary Arteries using Low Osmolar Contrast (ICD-10-PCS; 2018-10-18)
PROC: B3101ZZ Fluoroscopy of Thoracic Aorta using Low Osmolar Contrast (ICD-10-PCS; 2018-10-18)
DX: I31.9 Disease of pericardium, unspecified (principal); I10 Essential (primary) hypertension; L40.9 Psoriasis, unspecified; E66.9 Obesity, unspecified; E11.9 Type 2 diabetes mellitus without complications; T50.5X5A Adverse effect of appetite depressants, initial encounter; Z68.30 Body mass index [BMI] 30.0-30.9, adult
CPT/HCPCS: 36221; 36415; 71045; 80048; 80053; 80061; 83735; 83874; 84484; 85025; 85027; 85610; 85652; 85730; 86141; 87081; 93005; 93041; 93306; 93458; 96372

== ENCOUNTER 2018-10-31 06:52 | Observation (INO) | payer BC ==
[2018-10-31] VITALS (10 sets, daily range): BP systolic 130–154; BP diastolic 82–108
[~2018-10-31] VITALS: Ht 177.8 cm; Wt 96.7 kg
[~2018-10-31 06:52] MED LIST: ADAL40PE SC; IBUP-2055 PO; LISI10TA2 PO; PHEN37.53 PO
[2018-10-31] MEDS ORDERED: FAMOTIDINE 20MG/2ML IV (PEPCID) IV STA (06:59)
--- NOTE | 2018-10-31 07:00 | NUR ---
REPORT FROM JOVANNI Addendum: 10/31/18 at 1236 by PMCCLURE WILL CHANGE ROOM TO MED ICAL BED INSTEAD OF STEPDOWN.
--- OUTSIDE RECORDS SUMMARY | 2018-10-31 07:08 | XMS REPORT ---
Author Author Swapna Isaacs [facility] Address [address] [place], [place] [id number] Care Team Providers Care [employer] Name Role Phone Swapna Isaacs PCP Swapna Isaacs PreferredProvider Allergies and Adverse Reactions Name Reaction Notes NO KNOWN DRUG ALLERGIES Plan of Treatment Planned Activity Comments Planned Date Planned Time Plan/Goal .Lipid Panel 06/21/2017 12:00 AM .Lipid Panel 06/27/2018 12:00 AM Medications Active Name Start Date Estimated Completion Date SIG Comments Humira subcutaneous lisinopril 10 mg oral tablet 06/27/2018 TAKE 1 TABLET BY MOUTH EVERY DAY omeprazole 40 mg oral capsule,delayed release(DR/EC) take 1 capsule (40 mg) by oral route once daily before a meal Lexapro 10 mg oral tablet 10/25/2018 11/24/2018 take 1 tablet (10 mg) by oral route once daily for 30 days Name Start Date Expiration Date SIG Comments Orient-Smoothe/FS Scalp Oil 0.01 % scalp oil 08/26/2010 [...] HC BMI BSA BMI Percentile O2 Sat(%) 10/25/2018 10:10:00 AM 120 mmHg 70 mmHg 84 bpm 18 rpm 97.9 F 213 lbs 69.5 in 31.0033 kg/m 2.1766 m 98 % 06/27/2018 1:46:00 PM 134 mmHg 78 mmHg 88 bpm 18 rpm 98.4 F 234 lbs 69.5 in 34.06 kg/m2 2.28 m2 97 % 06/21/2017 1:42:00 PM 132 mmHg 72 mmHg 97 bpm 18 rpm 97.7 F 234.125 lbs 69.5 in 34.0782 kg/m 2.282 m 97 % 07/26/2016 5:13:00 PM 138 mmHg [...] AM COMPLETE CBC W/AUTO DIFF WBC Reviewed 06/27/2018 12:00 AM COMPREHEN METABOLIC PANEL Reviewed 07/01/2018 12:00 AM ASSAY OF GGT Reviewed 07/09/2018 12:00 AM ECHO EXAM OF ABDOMEN Reviewed 02/05/2015 12:00 AM Decadron, Per 1 Mg [facility] 2001# [address]-08 Reviewed 02/05/2015 12:00 AM Depo-Medrol 40mg Reviewed [...] index between 30-39, adult; body mass index 31.0- 31.9, adult Mar 12 2015 8:42AM Psoriasis Mar 12 2015 8:42AM Psoriasis Apr 15 2015 8:42AM BMI 30.0-30.9,adult Apr 15 2015 8:42AM Dietary Counseling May 21 2015 8:43AM Exercise Counseling May 21 2015 8:43AM Overweight May 21 2015 8:43AM Hypertension Mar 24 2016 9:12AM Body Mass Index [BMI]; body mass index between 30-39, adult; body mass index 32.0- 32.9, adult Mar 24 2016 9:12AM BMI 31.0-31.9,adult [...] Elevated liver enzymes Jul 09 2018 11:49AM Chest pain Oct 25 2018 10:16AM Anxiety Oct 25 2018 10:16AM Essential hypertension Oct 25 2018 10:16AM Payers Insurance Name Company Name Plan Name Plan Number Policy Number Policy Group Number Start Date [employer] [place] [id number] N/A [employer] [place] [id number] N/A [employer] [place] [id number] N/A [employer] [place] [id number] N/A History of Encounters Visit Date Visit Type Provider 10/25/2018 Office visit Swapna Isaacs PROPERTY MAINTENANCE TECHNICIAN 06/27/2018 Office visit Swapna Isaacs PROPERTY MAINTENANCE TECHNICIAN 06/21/2017 Office visit Swapna Isaacs PROPERTY MAINTENANCE TECHNICIAN 07/26/2016 Office visit Saleem Pena PROPERTY MAINTENANCE TECHNICIAN 07/24/2016 Office visit Swapna Isaacs PROPERTY MAINTENANCE TECHNICIAN 06/02/2016 Office visit Swapna Isaacs PROPERTY MAINTENANCE TECHNICIAN 04/28/2016 Office visit Swapna Isaacs PROPERTY MAINTENANCE TECHNICIAN 03/24/2016 Office visit Swapna Isaacs PROPERTY MAINTENANCE TECHNICIAN 05/21/2015 Office visit Valeria Maldonado PROPERTY MAINTENANCE TECHNICIAN 04/15/2015 Office visit Swapna Isaacs PROPERTY MAINTENANCE TECHNICIAN 03/12/2015 Office visit Swapna Isaacs PROPERTY MAINTENANCE TECHNICIAN 02/05/2015 Office visit Swapna Isaacs PROPERTY MAINTENANCE TECHNICIAN 03/27/2014 Office visit Swapna Isaacs PROPERTY MAINTENANCE TECHNICIAN 04/01/2013 Office visit Swapna Isaacs PROPERTY MAINTENANCE TECHNICIAN 03/19/2013 Office visit Valeria Maldonado PROPERTY MAINTENANCE TECHNICIAN 01/13/2013 Office visit Valeria Maldonado PROPERTY MAINTENANCE TECHNICIAN 11/28/2010 Office visit Reshma BELTRAN 08/26/2010 Office visit Reshma BELTRAN
--- OUTSIDE RECORDS SUMMARY | 2018-10-31 07:14 | XMS REPORT | Continuity of Care Document ---
Author Organization Unknown Address Unknown Allergies There is no data. Medications There is no data. Problems There is no data. Procedures There is no data. Results There is no data. Encounters ACCT No. Visit Date/Time Discharge Status Pt. Type Provider Facility Loc./Unit Complaint [id number] 10/25/2018 11:06:53 10/25/2018 23:59:59 CLS Outpatient WalkerSwapna [id number] 06/27/2018 14:41:59 06/27/2018 23:59:59 CLS Outpatient WalkerSwapna [id number] 06/21/2017 14:35:00 06/21/2017 23:59:59 CLS Outpatient WalkerSwapna [id number] 07/26/2016 19:22:24 07/26/2016 23:59:59 CLS Outpatient Becky Saleem [id number] 07/24/2016 10:32:40 07/24/2016 23:59:59 CLS Outpatient WalkerSwapna [id number] 06/02/2016 08:58:51 06/02/2016 23:59:59 CLS Outpatient WalkerSwapna [id number] 04/28/2016 08:55:01 04/28/2016 23:59:59 CLS Outpatient WalkerSwapna [id number] 03/24/2016 10:05:35 03/24/2016 23:59:59 CLS Outpatient WalkerSwapna [id number] 05/21/2015 09:16:08 05/21/2015 23:59:59 CLS Outpatient Joel Valeria Ade [id number] 04/15/2015 09:35:11 04/15/2015 23:59:59 CLS Outpatient WalkerSwapna [id number] 03/12/2015 09:37:20 03/12/2015 23:59:59 CLS Outpatient WalkerSwapna [id number] 02/05/2015 11:30:56 02/05/2015 23:59:59 CLS Outpatient WalkerSwapna [id number] 03/27/2014 11:20:57 03/27/2014 23:59:59 CLS Outpatient Walker Swapna
[2018-10-31 07:42] LABS: HEMATOCRIT 43 % (40-54); HEMOGLOBIN 15.5 G/DL (13.3-17.7); MEAN CORPUSCULAR HEMOGLOBIN 31 PG (25-34); MEAN CORPUSCULAR VOLUME 84 FL (80-99); WHITE BLOOD COUNT 8.5 10^3/uL (4.3-11.0)
[2018-10-31 07:43] LABS: BASOPHILS % (AUTO) 1 % (0-10); EOSINOPHILS # (AUTO) 0.2 10^3/uL (0.0-0.3); EOSINOPHILS % (AUTO) 3 % (0-10); LYMPHOCYTES % (AUTO) 47 % (12-44); MEAN CORPUSCULAR HGB CONC 36 G/DL (32-36); MEAN PLATELET VOLUME 9.4 FL (7.4-10.4); MONOCYTES # (AUTO) 0.9 X 10^3 (0.0-1.0); MONOCYTES % (AUTO) 10 % (0-12); NEUTROPHILS # (AUTO) 3.4 X 10^3 (1.8-7.8); NEUTROPHILS % (AUTO) 40 % (42-75); PLATELET COUNT 312 10^3/uL (130-400); PROTHROMBIN TIME PATIENT 13.1 SEC (12.2-14.7); RED CELL DISTRIBUTION WIDTH 12.4 % (10.0-14.5)
[2018-10-31 07:44] LABS: BUN/CREATININE RATIO 16; CARBON DIOXIDE 20 MMOL/L (21-32); CHLORIDE 101 MMOL/L (98-107); CREATININE SERUM 0.88 MG/DL (0.60-1.30); GFR ESTIMATED > 60; GLUCOSE 100 MG/DL (70-105); POTASSIUM 3.5 MMOL/L (3.6-5.0); SODIUM 137 MMOL/L (135-145)
[2018-10-31 07:45] LABS: ALANINE AMINOTRANSFERASE 68 U/L (0-55); ALBUMIN 4.9 GM/DL (3.2-4.5); ALKALINE PHOSPHATASE 79 U/L (40-136); BILIRUBIN,TOTAL 0.8 MG/DL (0.1-1.0); LIPASE 58 U/L (8-78); MAGNESIUM 2.3 MG/DL (1.8-2.4); TOTAL PROTEIN 7.7 GM/DL (6.4-8.2)
--- NOTE | 2018-10-31 07:48 | Diagnostic Imaging Report ---
CHEST 1 VIEW, AP/PA ONLY Indication: Chest pain Comparison: 10/18/2018 Findings: No focal airspace disease in the visualized lungs. Please note that the posterior lower lobes are poorly evaluated by portable radiography. No pleural effusion or pneumothorax. Normal cardiomediastinal silhouette. Impression: No acute cardiopulmonary process by portable radiography. Dictated by: Dictated on workstation # [id number]
--- NOTE | 2018-10-31 07:53 | ED Chest Pain ---
General Chief Complaint: Cardiac/General Problems Stated Complaint: CP Nursing Triage Note: VERBALIZED WAS AT WORK STARTED HAVING MEDIAL STERNAL CHEST PAIN, SHARP PRESSURE. DIZZINESS, NAUSEA, CLAMMY. VERBALIZED ONCE HE SET DOWN LESSENED. Nursing Sepsis Screen: No Definite Risk Source: patient Exam Limitations: no limitations History of Present Illness Date Seen by Provider: October 31, 2018 Time Seen by Provider: 06:39 Initial Comments Here with report of central chest pain that is in the epigastric region. Onset while at work this morning. 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 Afterwards he noticed that he had central pain that was associated with sweating and weakness. Did have some nausea. Has similar event a couple weeks ago and actually had a heart catheter and echocardiogram which were both normal. Denies vomiting or diarrhea. Recently started Lexapro. He is not on anything for stomach acid. Denies pain currently. He was here by EMS and they did give nitroglycerin. He did take 1 full dose aspirin at work. He had another event similar in the interim between the heart catheter and now and was seen at [place] and had negative workup there. Timing/Duration: 1 hour Severity/Quality: burning, pressure, tightness Location: central Radiation: no radiation Activities at Onset: activity Prior CP/Workup: cardiac cath, echocardiography Modifying Factors: improves with nitroglycerin, improves with rest ASA po EXTRUSION LINE OPERATOR: Yes NTG SL EXTRUSION LINE OPERATOR: Yes Associated Symptoms: abdominal pain; No back pain; diaphoresis; No edema, No fever/chills; nausea/vomiting; No shortness of breath Allergies and Home Medications Allergies Coded Allergies: No Known Drug Allergies (Unverified , 10/18/18) Home Medications Adalimumab 40 Mg/0.8 Ml Pen.ij.kit, 40 MG SC EVERY 2 WEEKS, (Reported) Ibuprofen 200 Mg Tablet, 400 MG PO Q6H PRN for PAIN-MILD Prescribed by: DEZ HOWARD on 10/19/18 1052 Lisinopril 10 Mg Tablet, 10 MG PO DAILY, (Reported) Phentermine HCl 37.5 Mg Tablet, 37.5 MG PO DAILY, (Reported) Patient Home Medication List Home Medication List Reviewed: Yes Review of Systems Review of Systems Constitutional: see HPI; No chills, No fever EENTM: No Symptoms Reported Respiratory: See HPI Cardiovascular: See HPI Gastrointestinal: See HPI Genitourinary: No Symptoms Reported Musculoskeletal: no symptoms reported All Other Systems Reviewed Negative Unless Noted: Yes Past Mkuopqt-Bxzrbp-Utxkdg Hx Past Med/Social Hx: Reviewed Nursing Past Med/Soc Hx Patient Social History Alcohol Use: Occasionally Uses Recreational Drug Use: No Smoking Status: Never a Smoker 2nd Hand Smoke Exposure: No Recent Foreign Travel: No Contact w/Someone Who Travel: No Recent Infectious Disease Expo: No Recent Hopitalizations: No Seasonal Allergies Seasonal Allergies: No Past Medical History Surgeries: No Respiratory: No Cardiac: Yes Hypertension Neurological: No Genitourinary: No Gastrointestinal: No Musculoskeletal: No Endocrine: Yes Diabetes, Non-Insulin dep HEENT: No Cancer: No Psychosocial: No Integumentary: No Family Medical History Reviewed Nursing Family Hx Cardiovascular disease MATERNAL AUNT No Pertinent Family Hx Physical Exam Vital Signs Vital Signs - First Documented 10/31/18 06:55 Temp 97.8 Pulse 22 Resp 22 B/P (MAP) 142/95 (111) Pulse Ox 99 O2 Delivery Room Air Capillary Refill : Less Than 3 Seconds Height, Weight, BMI Height: 5'10.00" Weight: 215lbs. 9.0oz. 97.716189ak; 30.5 BMI Method:Stated General Appearance: No Apparent Distress, WD/WN HEENT: PERRL/EOMI, Pharynx Normal Neck: Non Tender, Supple Respiratory: Lungs Clear, Normal Breath Sounds Cardiovascular: Regular Rate, Rhythm, No Murmur Gastrointestinal: Non Tender, Soft Extremity: Normal Range of Motion, Non Tender Neurologic/Psychiatric: Alert, Oriented x3 Skin: Normal Color, Warm/Dry Progress/Results/Core Measures Results/Orders Lab Results Laboratory Tests Test 10/31/18 06:30 10/31/18 10:51 Range/Units White Blood Count 8.5 4.3-11.0 10^3/uL Red Blood Count 5.08 4.35-5.85 10^6/uL Hemoglobin 15.5 13.3-17.7 G/DL Hematocrit 43 40-54 % Mean Corpuscular Volume 84 80-99 FL Mean Corpuscular Hemoglobin 31 25-34 PG Mean Corpuscular Hemoglobin Concent 36 32-36 G/DL Red Cell Distribution Width 12.4 10.0-14.5 % Platelet Count 312 130-400 10^3/uL Mean Platelet Volume 9.4 7.4-10.4 FL Neutrophils (%) (Auto) 40 L 42-75 % Lymphocytes (%) (Auto) 47 H 12-44 % Monocytes (%) (Auto) 10 0-12 % Eosinophils (%) (Auto) 3 0-10 % Basophils (%) (Auto) 1 0-10 % Neutrophils # (Auto) 3.4 1.8-7.8 X 10^3 Lymphocytes # (Auto) 4.0 1.0-4.0 X 10^3 Monocytes # (Auto) 0.9 0.0-1.0 X 10^3 Eosinophils # (Auto) 0.2 0.0-0.3 10^3/uL Basophils # (Auto) 0.0 0.0-0.1 10^3/uL Prothrombin Time 13.1 12.2-14.7 SEC INR Comment 1.0 0.8-1.4 Activated Partial Thromboplast Time 32 24-35 SEC D-Dimer 0.31 0.00-0.49 UG/ML Sodium Level 137 135-145 MMOL/L Potassium Level 3.5 L 3.6-5.0 MMOL/L Chloride Level 101 98-107 MMOL/L Carbon Dioxide Level 20 L 21-32 MMOL/L Anion Gap 16 H 5-14 MMOL/L Blood Urea Nitrogen 14 7-18 MG/DL Creatinine 0.88 0.60-1.30 MG/DL Estimat Glomerular Filtration Rate > 60 BUN/Creatinine Ratio 16 Glucose Level 100 70-105 MG/DL Calcium Level 10.0 8.5-10.1 MG/DL Corrected Calcium 8.5-10.1 MG/DL Magnesium Level 2.3 1.8-2.4 MG/DL Total Bilirubin 0.8 0.1-1.0 MG/DL Aspartate Amino Transf (AST/SGOT) 25 5-34 U/L Alanine Aminotransferase (ALT/SGPT) 68 H 0-55 U/L Alkaline Phosphatase 79 40-136 U/L Myoglobin 57.0 10.0-92.0 NG/ML Troponin I < 0.028 0.929 *H <0.028 NG/ML Total Protein 7.7 6.4-8.2 GM/DL Albumin 4.9 H 3.2-4.5 GM/DL Lipase 58 8-78 U/L My Orders Orders - PRIYANK SHAH MD Cbc With Automated Diff (10/31/18 06:59) Magnesium (10/31/18 06:59) Chest 1 View, Ap/Pa Only (10/31/18 06:59) Ekg Tracing (10/31/18 06:59) Cardiac Profile 1 (10/31/18 06:59) Comprehensive Metabolic Panel (10/31/18 06:59) Myoglobin Serum (10/31/18 06:59) Protime With Inr (10/31/18 06:59) Partial Thromboplastin Time (10/31/18 06:59) O2 (10/31/18 06:59) Monitor-Rhythm Ecg Trace Only (10/31/18 06:59) Lipid Panel (11/01/18 06:00) Ed Iv/Invasive Line Start (10/31/18 06:59) Lipase (10/31/18 06:59) Fibrin Degradation Products (10/31/18 06:59) Famotidine Injection (Pepcid Injection) (10/31/18 06:59) Ketorolac Injection (Toradol Injection) (10/31/18 08:40) Lidocaine 2% Viscous 15 Ml (Xylocaine Vi (10/31/18 08:45) Antacid Suspension (Mylanta Suspension (10/31/18 08:45) Troponin I (10/31/18 10:31) Medications Given in ED Current Medications Medications Dose Ordered Sig/Coco Route Start Time Stop Time Status Last Admin Dose Admin Al Hydrox/Mg Hydrox/Simethicone 30 ml ONCE ONCE PO 10/31/18 08:45 10/31/18 08:46 DC 10/31/18 08:47 30 ML Lidocaine HCl 15 ml ONCE ONCE PO 10/31/18 08:45 10/31/18 08:46 DC 10/31/18 08:47 15 ML Vital Signs/I&O 10/31/18 06:55 Temp 97.8 Pulse 22 Resp 22 B/P (MAP) 142/95 (111) Pulse Ox 99 O2 Delivery Room Air Blood Pressure Mean: 111 Progress Progress Note : Progress Note Seen and evaluated. IV, labs, EKG and chest x-ray. Patient is alert and had aspirin and nitroglycerin. Pepcid 20 mg IV ordered. Monitor patient. Patient did receive GI cocktail and Toradol 30 mg IV for continued pain. We did repeat troponin at the forearm are. This was positive. I did discuss the case with Dr. Vallejo. He does have a negative heart catheter but this may be myocarditis that needs further treatment. Certainly needs further monitoring. He will accept the patient in consult. I did discuss the case with Dr. PAONTE at 1210 and he accepts patient for admission, observation status. Discussed with patient who agrees with plan. Initial ECG Impression Date: October 31, 2018 Initial ECG Impression Time: 06:52 Initial ECG Rate: 77 Initial ECG Rhythm: Normal Sinus Initial ECG Comparisson: Unchanged Comment Sinus rhythm with normal axis. No evidence of ST elevation NE. Unchanged from previous of 10/18/18. Interpreted by me. Diagnostic Imaging Diagonstic Imaging: Xray Plain Films/CT/US/NM/MRI: chest Comments NAME: KAILEE WHITTEN [facility] REC#: [id number] PT STATUS: REG ER : 1980 PHYSICIAN: PRIYANK SHAH MD ADMIT DATE: 10/31/18/ER Signed Date of Exam: 10/31/18 CHEST 1 VIEW, AP/PA ONLY CHEST 1 VIEW, AP/PA ONLY Indication: Chest pain Comparison: 10/18/2018 Findings: No focal airspace disease in the visualized lungs. Please note that the posterior lower lobes are poorly evaluated by portable radiography. No pleural effusion or pneumothorax. Normal cardiomediastinal silhouette. Impression: No acute cardiopulmonary process by portable radiography. Dictated by: Dictated on workstation # [id number] Dict: 10/31/1845 Trans: 10/31/1845 Interpreted by: CHRIS EAST MD Electronically signed by: CHRIS EAST MD 10/31/1845 Departure Communication (Admissions) Time/Spoke to Admitting Phy: 12:10 Time/Spoke to Consulting Phy: 12:00 Impression Primary Impression: Chest pain Qualified Codes: R07.9 - Chest pain, unspecified Additional Impression: Elevated troponin I level Disposition: ADMITTED INPATIENT Condition: Stable Admissions Decision to Admit Reason: Admit from ER (General) Decision to Admit/Date: October 31, 2018 Time/Decision to Admit Time: 12:00 Departure-Patient Inst. Referrals: WALKER,PAMELA D DIRECTOR [employer] SYSTEMS (PCP/Family) Primary Care Physician PRIYANK SHAH MD October 31, 2018 07:53
--- NOTE | 2018-10-31 08:21 | NUR ---
PATIENT REPORTS PAIN IS COMING BACK NOTIFIED
[2018-10-31] MEDS ORDERED: KETOROLAC 30 MG/ML VIAL IVP STA (08:40)
[2018-10-31] MEDS ORDERED: ANTACID SUSP 30 ML UDC (MYLANTA) PO ONE (08:45)
[2018-10-31] MEDS ORDERED: LIDOCAINE 2% VISCOUS 15 ML UDC PO ONE (08:45)
--- NOTE | 2018-10-31 09:29 | NUR ---
TO ROOM PAIN BETTER.
--- NOTE | 2018-10-31 11:34 | NUR ---
TO ROOM REPORTS THAT PAIN IS GONE INFORMED HIM THAT DR WILL BE IN [place] IN TALK WITH HIM.
--- NOTE | 2018-10-31 11:51 | NUR ---
DR ALLY HARDIN
--- NOTE | 2018-10-31 12:09 | NUR ---
IN ROOM TALKING WITH PATIENT.
--- NOTE | 2018-10-31 12:20 | NUR ---
CALLED FOR ROOM
--- NOTE | 2018-10-31 12:35 | NUR ---
CALLED TO GIVE REPORT INFORMED KAMARI THAT HES WAS GOING TO MEDICAL BED AND GAVE ME A STEP DOWN BED. HOUSE ALEXANDER MOTTA TO CALL BACK
[2018-10-31] MEDS ORDERED: ESCI10TA55 PO (13:39)
--- NOTE | 2018-10-31 13:40 | NUR ---
SPOKE WITH THE PATIENT ABOUT HIS MEDICATIONS. WE WENT OVER THE EXT MED HX AND HE VERIFIED HOW HE TAKES THEM. 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 HE FILLED A 10 DAY SUPPLY OF OMEPRAZOLE BUT STATES THAT IS GONE, IT WAS GIVEN IN ER TO SEE IF IT HELPED BUT HE STATES HE IS NOT GOING TO TAKE IT ANYMORE.
--- NOTE | 2018-10-31 13:40 | NUR ---
EKG DONE AT THIS TIME PER PROTOCOL. ON ASSESSMENT OF THIS CURRENT EKG STRIP VS PRIOR EKG THERE APPEARS TO BE ST ELEVATION. EKG REPORT STATES "SINUS RHYTHM WITH ANTEROLATERAL INFARCT, RECENT. NOTIFIED DR. GUARDADO AT THIS TIME. ORDERS TO KEEP PATIENT NPO. NO OTHER ORDERS RECEIVED AT THIS TIME. WILL CARRY OUT ORDERS AND CONTINUE TO MONITOR.
[2018-10-31] MEDS ORDERED: KETOROLAC 30 MG/ML VIAL IV PRN (13:45)
[2018-10-31] MEDS ORDERED: CATHETER FLUSH 10 ML SYR IV PRN (13:45)
[2018-10-31] MEDS: NS IV 1000 ML 1,000 ML IV SCH (13:49)
--- NOTE | 2018-10-31 16:34 | Consultation-Cardiology ---
HPI-Cardiology Cardiology Consultation Date of Consultation 10/31/18 Date of Admission Time Seen by Provider: 16:29 Indication: chest pain HPI 37 years old gentleman with recent diagnosis of myocarditis, was seen about 2 weeks ago for chest pain and elevated troponin, had a normal cardiac catheterization. Was in his usual state of health at work, he works at [employer], started to have episode of lightheadedness and dizziness, he was taken to the break room and sat down and started having chest pain waxing and waning, came into the emergency room and he is first set of cardiac enzymes were negative, the second set were elevated. Currently he is laying down in bed comfortable denied any active chest pain, denied any palpitation, syncope or near syncopal episodes. No claudications. Home Medications & Allergies Allergies: Coded Allergies: No Known Drug Allergies (Unverified , 10/18/18) Home Medication List Reviewed: Yes YRT-Lcfmfk-Ydbpxu Hx Patient Social History Marital Status: Employed/Student: employed Alcohol Use: Occasionally Uses Recreational Drug Use: No Smoking Status: Never a Smoker 2nd Hand Smoke Exposure: No Recent Foreign Travel: No Recent Infectious Disease Expo: No Recent Hopitalizations: No Past Medical History discussed below Family Medical History Significant Family History: No Pertinent Family Hx Family History: Cardiovascular disease MATERNAL AUNT Maternal Grandmother, Review of Systems-General Review of Systems Constitutional: see HPI; No chills; dizziness; No fever; malaise EENTM: see HPI, no symptoms reported Respiratory: see HPI; No cough, No dyspnea on exertion, No hemoptysis, No orthopnea, No phlegm, No short of breath, No stridor, No wheezing, No other Cardiovascular: see HPI, chest pain Gastrointestinal: no symptoms reported, see HPI Genitourinary: no symptoms reported, see HPI Musculoskeletal: no symptoms reported Skin: no symptoms reported, see HPI Psychiatric/Neurological: No Symptoms Reported, See HPI All Other Systems Reviewed Negative Unless Noted: Yes Reviewed Test Results Reviewed Test Results Lab Laboratory Tests Test 10/31/18 06:30 10/31/18 10:51 Range/Units White Blood Count 8.5 4.3-11.0 10^3/uL Red Blood Count 5.08 4.35-5.85 10^6/uL Hemoglobin 15.5 13.3-17.7 G/DL Hematocrit 43 40-54 % Mean Corpuscular Volume 84 80-99 FL Mean Corpuscular Hemoglobin 31 25-34 PG Mean Corpuscular Hemoglobin Concent 36 32-36 G/DL Red Cell Distribution Width 12.4 10.0-14.5 % Platelet Count 312 130-400 10^3/uL Mean Platelet Volume 9.4 7.4-10.4 FL Neutrophils (%) (Auto) 40 L 42-75 % Lymphocytes (%) (Auto) 47 H 12-44 % Monocytes (%) (Auto) 10 0-12 % Eosinophils (%) (Auto) 3 0-10 % Basophils (%) (Auto) 1 0-10 % Neutrophils # (Auto) 3.4 1.8-7.8 X 10^3 Lymphocytes # (Auto) 4.0 1.0-4.0 X 10^3 Monocytes # (Auto) 0.9 0.0-1.0 X 10^3 Eosinophils # (Auto) 0.2 0.0-0.3 10^3/uL Basophils # (Auto) 0.0 0.0-0.1 10^3/uL Prothrombin Time 13.1 12.2-14.7 SEC INR Comment 1.0 0.8-1.4 Activated Partial Thromboplast Time 32 24-35 SEC D-Dimer 0.31 0.00-0.49 UG/ML Sodium Level 137 135-145 MMOL/L Potassium Level 3.5 L 3.6-5.0 MMOL/L Chloride Level 101 98-107 MMOL/L Carbon Dioxide Level 20 L 21-32 MMOL/L Anion Gap 16 H 5-14 MMOL/L Blood Urea Nitrogen 14 7-18 MG/DL Creatinine 0.88 0.60-1.30 MG/DL Estimat Glomerular Filtration Rate > 60 BUN/Creatinine Ratio 16 Glucose Level 100 70-105 MG/DL Calcium Level 10.0 8.5-10.1 MG/DL Corrected Calcium 8.5-10.1 MG/DL Magnesium Level 2.3 1.8-2.4 MG/DL Total Bilirubin 0.8 0.1-1.0 MG/DL Aspartate Amino Transf (AST/SGOT) 25 5-34 U/L Alanine Aminotransferase (ALT/SGPT) 68 H 0-55 U/L Alkaline Phosphatase 79 40-136 U/L Myoglobin 57.0 10.0-92.0 NG/ML Troponin I < 0.028 0.929 *H <0.028 NG/ML Total Protein 7.7 6.4-8.2 GM/DL Albumin 4.9 H 3.2-4.5 GM/DL Lipase 58 8-78 U/L Physical Exam Physical Exam Vital Signs Vital Signs - First Documented 10/31/18 10/31/18 06:55 13:28 Temp 97.8 Pulse 22 Resp 22 B/P (MAP) 142/95 (111) Pulse Ox 99 O2 Delivery Room Air O2 Flow Rate 0.00 Capillary Refill : Less Than 3 Seconds Height, Weight, BMI Height: 5'10.00" Weight: 213lbs. 3.0oz. 96.266915qm; 30.6 BMI Method:Stated General Appearance: No Apparent Distress, WD/WN Eyes: Bilateral Eye Normal Inspection, Bilateral Eye PERRL, Bilateral Eye EOMI HEENT: PERRL/EOMI, Pharynx Normal Neck: Non Tender, Supple Respiratory: Lungs Clear, Normal Breath Sounds Cardiovascular: Regular Rate, Rhythm, No Murmur Gastrointestinal: Non Tender, Soft Back: Normal Inspection, No CVA Tenderness, No Vertebral Tenderness Extremity: Normal Range of Motion, Non Tender Neurologic/Psychiatric: Alert, Oriented x3 Skin: Normal Color, Warm/Dry Lymphatic: No Adenopathy A/P-Cardiology Admission Diagnosis Near syncope Type II SC Hypertension Assessment/Plan Dizziness and lightheadedness, probably secondary to orthostatic hypotension. Patient drinks significant amount of fluid. I will continue monitoring blood p ressure closely Non-ST elevation myocardial infarction, type II SC, probably secondary to hypotension. I reviewed his cardiac catheterization film and did not see any obstructive disease, he is currently chest pain-free. I will monitor overnight and repeat his troponin level in the morning Hypertension, maintained on lisinopril which will be stopped. I will consider the use of selective beta-1 blockers to avoid orthostatic hypotension. Educated on drinking large amount of fluid Questionable myocarditis. His troponin initially was negative. Unlikely to be myocarditis at this point. Clinical Quality Measures AMI/AHF: ASA po Prior to arrival: Yes DVT/VTE Risk/Contraindication: Risk Factor Score Per Nursin RFS Level Per Nursing on Admit: 1=Low/No VTE PPX BEVERLY GUARDADO MD October 31, 2018 16:34
[2018-10-31] MEDS ORDERED: ASPIRIN E.C. 81 MG (ECOTRIN) TAB PO NR (16:45)
[2018-10-31 17:17] LABS: AMPHETAMINE SCREEN, URINE POSITIVE (NEGATIVE); BARBITURATE SCREEN URINE NEGATIVE (NEGATIVE); BENZODIAZEPINES SCREEN URINE NEGATIVE (NEGATIVE); CANNABINOID SCREEN, URINE NEGATIVE (NEGATIVE); COCAINE SCREEN URINE NEGATIVE (NEGATIVE); METHADONE STAT NEGATIVE (NEGATIVE); METHAMPHETAMINE SCREEN URINE S NEGATIVE (NEGATIVE); OPIATE SCREEN URINE NEGATIVE (NEGATIVE); OXYCODONE STAT NEGATIVE (NEGATIVE); PROPOXYPHENE STAT NEGATIVE (NEGATIVE); TRICYCLIC ANTIDEPRESSANTS SCRE NEGATIVE (NEGATIVE)
[2018-10-31] MEDS: PANTOPRAZOLE 40 MG (PROTONIX) TAB PO SCH (17:39)
--- OUTSIDE RECORDS SUMMARY | 2018-10-31 22:35 | XMS REPORT | Continuity of Care Document ---
Author Organization Unknown Address Unknown Allergies There is no data. Medications There is no data. Problems There is no data. Procedures There is no data. Results There is no data. Encounters ACCT No. Visit Date/Time Discharge Status Pt. Type Provider Facility Loc./Unit Complaint [id number] 10/25/2018 11:06:53 10/25/2018 23:59:59 CLS Outpatient WalkerSwapna [id number] 06/27/2018 14:41:59 06/27/2018 23:59:59 CLS Outpatient WalkerSwapna [id number] 06/21/2017 14:35:00 06/21/2017 23:59:59 CLS Outpatient WalkerSwapna [id number] 07/26/2016 19:22:24 07/26/2016 23:59:59 CLS Outpatient Becky Saleem [id number] 07/24/2016 10:32:40 07/24/2016 23:59:59 CLS Outpatient WalkerSwapna [id number] 06/02/2016 08:58:51 06/02/2016 23:59:59 CLS Outpatient WalkerSwapna [id number] 04/28/2016 08:55:01 04/28/2016 23:59:59 CLS Outpatient WalkerSwapna [id number] 03/24/2016 10:05:35 03/24/2016 23:59:59 CLS Outpatient WalkerSwapna [id number] 05/21/2015 09:16:08 05/21/2015 23:59:59 CLS Outpatient Joel Valeria Ade [id number] 04/15/2015 09:35:11 04/15/2015 23:59:59 CLS Outpatient WalkerSwapna [id number] 03/12/2015 09:37:20 03/12/2015 23:59:59 CLS Outpatient WalkerSwapna [id number] 02/05/2015 11:30:56 02/05/2015 23:59:59 CLS Outpatient WalkerSwapna [id number] 03/27/2014 11:20:57 03/27/2014 23:59:59 CLS Outpatient Walker Swapna
[2018-11-01] MEDS: NS IV 1000 ML 1,000 ML IV SCH (00:05)
[2018-11-01 00:12] VITALS: BP 120/80
[2018-11-01 04:47] VITALS: BP 119/80
[2018-11-01 05:21] LABS: BASOPHILS % (AUTO) 1 % (0-10); EOSINOPHILS # (AUTO) 0.3 10^3/uL (0.0-0.3); EOSINOPHILS % (AUTO) 3 % (0-10); HEMATOCRIT 42 % (40-54); HEMOGLOBIN 14.7 G/DL (13.3-17.7); LYMPHOCYTES # (AUTO) 3.2 X 10^3 (1.0-4.0); LYMPHOCYTES % (AUTO) 41 % (12-44); MEAN CORPUSCULAR HEMOGLOBIN 31 PG (25-34); MEAN CORPUSCULAR HGB CONC 35 G/DL (32-36); MEAN CORPUSCULAR VOLUME 86 FL (80-99); MEAN PLATELET VOLUME 9.7 FL (7.4-10.4); MONOCYTES # (AUTO) 0.7 X 10^3 (0.0-1.0); MONOCYTES % (AUTO) 9 % (0-12); NEUTROPHILS # (AUTO) 3.6 X 10^3 (1.8-7.8); NEUTROPHILS % (AUTO) 46 % (42-75); PLATELET COUNT 241 10^3/uL (130-400); RED CELL DISTRIBUTION WIDTH 12.4 % (10.0-14.5); WHITE BLOOD COUNT 7.9 10^3/uL (4.3-11.0)
[2018-11-01 06:00] LABS: ALANINE AMINOTRANSFERASE 53 U/L (0-55); ALKALINE PHOSPHATASE 66 U/L (40-136); BILIRUBIN,TOTAL 0.6 MG/DL (0.1-1.0); BUN/CREATININE RATIO 18; CARBON DIOXIDE 22 MMOL/L (21-32); CHLORIDE 108 MMOL/L (98-107); GFR ESTIMATED > 60; GLUCOSE 102 MG/DL (70-105); POTASSIUM 3.8 MMOL/L (3.6-5.0); SODIUM 138 MMOL/L (135-145); TOTAL PROTEIN 6.1 GM/DL (6.4-8.2)
[2018-11-01 06:01] LABS: CHOLESTEROL 166 MG/DL (< 200); HDL CHOLESTEROL 43 MG/DL (40-60); TRIGLYCERIDES 116 MG/DL (<150); VLDL CHOLESTEROL 23 MG/DL (5-40)
[2018-11-01 06:09] LABS: ERYTHROCYTE SEDIMENTATION RATE 5 MM/HR (0-15)
--- NOTE | 2018-11-01 06:10 | NUR ---
THIS RN CALLED DR GUARDADO IN REGARDS TO THE PATIENT'S 0100 TROPONIN LAB DRAW BEING 4.027 AND THE PATIENT'S 0500 TROPONIN LAB DRAW BEING 3.613. NO NEW ORDERS RECEIVED AT THIS TIME.
[2018-11-01 08:02] VITALS: BP 137/91
[2018-11-01] MEDS: PANTOPRAZOLE 40 MG (PROTONIX) TAB PO SCH (08:15)
--- NOTE | 2018-11-01 08:33 | Cardiology Progress Note ---
Subjective Date Seen by Provider: November 01, 2018 Time Seen by Provider: 08:28 Subjective/Events-last exam patient is in bed, feeling better. No further episodes of chest pain. Review of Systems General: No Chills, No Night Sweats, No Fatigue, No Malaise, No Appetite, No Other HEENT: No Head Aches, No Visual Changes, No Eye Pain, No Ear Pain, No Dysphasia, No Sinus Congestion, No Post Nasal Drip, No Sore Throat, No Other Pulmonary: No Dyspnea, No Cough, No Pleuritic Chest Pain, No Other Cardiovascular: No: Chest Pain, Palpitations, Orthopnea, Paroxysmal Noc. Dyspnea, Edema, Lt Headedness, Other Objective-Cardiology Exam Last Set of Vital Signs Vital Signs 11/01/18 08:02 Temp 97.6 Pulse 71 Resp 19 B/P (MAP) 137/91 (106) Pulse Ox 96 O2 Delivery Room Air O2 Flow Rate 0.00 Capillary Refill : Less Than 3 Seconds I&O Intake and Output 11/01/18 00:00 Intake Total 610 ml Output Total 250 ml Balance 360 ml Intake Oral 610 ml Output Urine Total 250 ml # Voids 2 Daily Weight Change No No General: Alert, Oriented X3, Cooperative HEENT: Atraumatic, PERRLA Neck: Supple, No JVD, No Thyromegaly Lungs: Clear to Auscultation, Normal Air Movement Heart: Regular Rate, Normal S1, Normal S2, No Murmurs Abdomen: Normal Bowel Sounds, Soft, No Tenderness, No Hepatosplenomegaly, No Masses Extremities: No Clubbing, No Cyanosis, No Edema, Normal Pulses, No Tenderness/Swelling Skin: No Rashes, No Breakdown, No Significant Lesion Neuro: Normal Gait, Normal Speech, Strength at 5/5 X4 Ext, Normal Tone, Sensation Intact Psych/Mental Status: Mental Status NL, Mood NL Results Lab Laboratory Tests 11/01/18 04:42 11/01/18 04:43 A/P-Cardiology Admission Diagnosis Near syncope Type II ND Hypertension Assessment/Plan Dizziness and lightheadedness, probably secondary to orthostatic hypotension, I have changed lisinopril to metoprolol. Educated about condition. Recommended TYRON javed. Non-ST elevation myocardial infarction, type II ND, probably secondary to hypotension. I reviewed his cardiac catheterization film and did not see any obstructive disease, reassured at this time. He is not having any active chest pain. Planning to discharge. Hypertension, maintained on lisinopril which will be stopped, I started him on Toprol-XL 25 mg daily. Questionable myocarditis, myoglobin was negative. Unlikely to be myocarditis. No signs of pericarditis. Amphetamine positive in the urine, patient was on phentermine for weight loss that was stopped last week. Educated on avoiding any diet medicine Patient was started on Lexapro for these episodes, I instructed him to stop it Clinical Quality Measures AMI/AHF: ASA po Prior to arrival: Yes DVT/VTE Risk/Contraindication: Risk Factor Score Per Nursin RFS Level Per Nursing on Admit: 1=Low/No VTE PPX BEVERLY GUARDADO MD November 01, 2018 08:33
[2018-11-01] MEDS ORDERED: ASPI-983 PO (08:34)
[2018-11-01] MEDS ORDERED: METO-387 PO (08:34)
--- NOTE | 2018-11-01 08:37 | Clinic Account Progress/Dx ---
Clinic Account Progress/Dx DIAGNOSIS: Date Seen by Provider: November 01, 2018 Time Seen by Provider: 08:37 Syncope Type II myocardial infarction Hypotension BEVERLY GUARDADO MD November 01, 2018 08:37
[2018-11-01] MEDS ORDERED: ASPIRIN E.C. 81 MG (ECOTRIN) TAB PO SCH (09:00)
--- NOTE | 2018-11-01 09:50 | NUR ---
KAILEE WHITTEN demonstrates understanding of discharge instructions and accurately returns instructions upon questioning. Copy of Post-Discharge Instructions and Medication Discharge Instructions given to PATIENT AND FAMILY. KAILEE WHITTEN is able to manage continuing needs after discharge. Patients belongings returned to PATIENT. Skin dry and intact; no breakdown noted. Patient discharged from [facility]- on 11/01/18 at 0950 . KAILEE WHITTEN left floor via WHEELCHAIR, accompanied by STAFF.
[2018-11-01] MEDS ORDERED: PANTOPRAZOLE 40 MG (PROTONIX) TAB PO SCH (14:00)
== END 2018-11-01 09:13 | disposition home or self-care (01) ==
LOC: EDUNIT# 06:52 → ER 06:54 → UNDOADMOB 12:34 → ICU 12:34 → 4TH 12:49 → ICU 12:49 → 4TH 13:20 → UNDODISOB 11-01 09:50
PROVIDERS: ADMIT Internal Medicine; ATTEND Internal Medicine
DX: I21.A1 Myocardial infarction type 2 (principal); I95.1 Orthostatic hypotension; I10 Essential (primary) hypertension; E11.9 Type 2 diabetes mellitus without complications; Z79.899 Other long term (current) drug therapy
CPT/HCPCS: 36415; 71045; 80053; 80061; 80306; 83690; 83735; 83874; 84484; 85025; 85027; 85379; 85610; 85652; 85730; 93005; 93041; 96374; 96375; G0378

== ENCOUNTER → 2022-02-26 | Outpatient (CLI) | payer BC ==
[~2022-02-26] MED LIST changes: +ASPI-1238 PO; +ESCI-2 PO; -IBUP-2055 PO; +IBUP-2473 PO; -LISI10TA2 PO; +LISI10TA25 PO; +MTP25TSR PO; -PHEN37.53 PO; +PHEN37.58 PO
--- NOTE | 2022-02-26 14:07 | Diagnostic Imaging Report ---
INDICATION: LT INDEX FINGER PAIN. TECHNIQUE: PA hand along with two views of the left index finger at 01:58 p.m. CORRELATION STUDY: None. FINDINGS: Osseous structures of the left hand are intact. Alignment is anatomic. Joint spaces are maintained. Two dedicated views of the left index finger demonstrate no acute bony abnormality. Alignment is anatomic. Joint spaces are maintained. Soft tissues are unremarkable. IMPRESSION: 1. Negative for acute bony abnormality of the left hand with attention to the left index finger. Dictated by: Dictated on workstation # [id number]
== END ==
LOC: RAD 13:35
PROVIDERS: ATTEND Nurse Practitioner Family
DX: M79.645 Pain in left finger(s) (principal); X50.3XXA Overexertion from repetitive movements, initial encounter
CPT/HCPCS: 73140